=== PATIENT | female | born 1990 | race Caucasian/White ===

== ENCOUNTER → 2018-11-12 15:53 | Outpatient (CLI) | payer OTHER, SELFPAY ==
[2018-12-04 16:22] LABS: HPV Reflexed? NOT INDICATED
== END ==
PROVIDERS: Referring Provider Obstetrics & Gynecology; Visit Provider Obstetrics & Gynecology
DX: Z12.4 Encounter for screening for malignant neoplasm of cervix (principal)
CPT/HCPCS: 88175; G0145

== ENCOUNTER → 2019-10-21 13:56 | Outpatient (CLI) | payer OTHER, SELFPAY ==
[2019-10-21 16:52] LABS: Vitamin D,25 Hydroxy 24.4 ng/mL (29.95-100.01)
== END ==
PROVIDERS: Visit Provider Obstetrics & Gynecology
DX: E55.9 Vitamin D deficiency, unspecified (principal)
CPT/HCPCS: 82306

== ENCOUNTER → 2020-07-27 14:54 | Outpatient (CLI) | payer OTHER, SELFPAY ==
[2020-07-27 17:47] LABS: Progesterone Level 23.18 ng/mL (See Comment)
[2020-07-27 17:49] LABS: hCG Titer Quant., Serum 874 mIU/mL (1-3)
[2020-07-31 03:06] LABS: Chlamydia By Nucleic Acid AMP Negative (Negative)
[2020-07-31 05:39] LABS: Gonococcus By Nucleic Acid AMP Negative (Negative)
== END ==
PROVIDERS: Visit Provider Obstetrics & Gynecology
DX: Z11.3 Encounter for screening for infections with a predominantly sexual mode of transmission (principal); Z34.81 Encounter for supervision of other normal pregnancy, first trimester
CPT/HCPCS: 36415; 84144; 84702; 87491; 87591

== ENCOUNTER → 2020-07-29 14:28 | Outpatient (CLI) | payer OTHER, SELFPAY ==
[2020-07-29 16:00] LABS: hCG Titer Quant., Serum 2095 mIU/mL (1-3)
== END ==
PROVIDERS: Visit Provider Obstetrics & Gynecology
DX: Z34.81 Encounter for supervision of other normal pregnancy, first trimester (principal)
CPT/HCPCS: 36415; 84702

== ENCOUNTER → 2020-08-16 10:41 | Outpatient (CLI) | payer OTHER, SELFPAY ==
[2020-08-16 12:18] LABS: Absolute Lymphocyte Count 2.09 X10^3/uL (0.83-4.51); Basophil# 0.04 X10^3/uL; Basophil% 0.5 % (0-1); Eosinophil# 0.05 X10^3/uL; Eosinophils% 0.6 % (0-5); Hematocrit 38.1 % (37-47); Hemoglobin 12.6 g/dL (12.0-15.0); Lymphocyte # 2.09 X10^3/ul (4.0); Lymphocyte % 26.9 % (19-41); Mean Corp Hgb Conc 33.1 g/dL (32-36); Mean Corpuscular Hgb 29.1 pg (27.0-32.0); Mean Platelet Vol. 10.3 fl (6.2-12.0); Monocyte# 0.58 X10^3/uL; Monocyte% 7.5 % (0-10); NRBC Flagged by Analyzer 0 % (0-5); Neutrophil # 4.98 X10^3/uL (2.7-7.7); Neutrophil % 64.1 % (47-70); Platelet Count 272 K/mm3 (150-450); RBC Distribution Width CV 11.6 % (11.6-14.6); RBC Distribution Width SD 37.6 fl (35.1-43.9); Red Blood Count 4.33 M/mm3 (4.2-5.4); White Blood Count 7.8 K/mm3 (4.4-11.0)
[2020-08-16 13:08] LABS: HIV - WCH Non-Reactive (Nonreactive); Hepatitis B Surface Antigen Non-Reactive (Nonreactive); Hepatitis C Antibody Non-Reactive (Nonreactive); Rubella IgG 23.1 IU/mL
[2020-08-17 10:40] LABS: Vitamin D,25 Hydroxy 30.2 ng/mL
[2020-08-17 20:44] LABS: V-Zoster IgG (Immunity) 3711 index (Immune >165)
[2020-08-18 05:23] LABS: Prenatal RPR NONREACTIVE (NONREACTIVE)
== END ==
PROVIDERS: Visit Provider Student in an Organized Health Care Education/Training Program
DX: Z34.81 Encounter for supervision of other normal pregnancy, first trimester (principal)
CPT/HCPCS: 36415; 82306; 85025; 86703; 86762; 86787; 86803; 87340

== ENCOUNTER → 2020-12-23 14:47 | Outpatient (CLI) | payer OTHER, SELFPAY | PROVIDERS: Visit Provider Student in an Organized Health Care Education/Training Program | DX: R30.0 Dysuria (principal) | CPT/HCPCS: 87086 ==

== ENCOUNTER → 2021-01-04 09:49 | Outpatient (CLI) | payer OTHER, SELFPAY ==
[2021-01-04 10:17] LABS: Glucose Challenge Gest 1H 50g 153 mg/dL (70-140); Hematocrit 35.5 % (37-47); Hemoglobin 11.7 g/dL (12.0-15.0); Mean Corpuscular Hgb 29.5 pg (27.0-32.0); Mean Corpuscular Volume 89.4 fL (81-99); Mean Platelet Vol. 10.2 fl (6.2-12.0); Platelet Count 249 K/mm3 (150-450); RBC Distribution Width CV 12.9 % (11.6-14.6); RBC Distribution Width SD 42.3 fl (35.1-43.9); Red Blood Count 3.97 M/mm3 (4.2-5.4); White Blood Count 12.7 K/mm3 (4.4-11.0)
== END ==
PROVIDERS: Visit Provider Obstetrics & Gynecology
DX: Z34.83 Encounter for supervision of other normal pregnancy, third trimester (principal)
CPT/HCPCS: 36415; 82950; 85027

== ENCOUNTER → 2021-01-05 08:13 | Outpatient (CLI) | payer OTHER, SELFPAY ==
[2021-01-05 14:46] LABS: Glucose GTT-Gestation. Fasting 78 mg/dL (<105)
[2021-01-05 14:47] LABS: Glucose GTT-Gestational 1 Hr 138 mg/dL (<190)
[2021-01-05 14:48] LABS: Glucose GTT-Gestational 2 Hr 128 mg/dL (<165)
[2021-01-05 14:50] LABS: Glucose GTT-Gestational 3 Hr 97 L (<145)
== END ==
PROVIDERS: Visit Provider Obstetrics & Gynecology
DX: O99.810 Abnormal glucose complicating pregnancy (principal); Z3A.00 Weeks of gestation of pregnancy not specified
CPT/HCPCS: 36415; 82951; 82952

== ENCOUNTER 2021-01-25 08:27 | Observation (INO) | payer OTHER, SELFPAY ==
[2021-01-25] VITALS (8 sets, daily range): BP systolic 115–149; BP diastolic 65–95; PULSE 77–95; RESP 16; TEMP 36.6–36.8; O2SAT 97–100; BMI 29.0; BMI 29.9
--- NOTE | 2021-01-25 08:31 | ED.RN ---
consulted Dr Woo on patients complaints and vitals. He recommends patient be seen in ED before going to OB.
--- NOTE | 2021-01-25 08:47 | EKG12_ITS ---
Test Reason : Blood Pressure : / mmHG Vent. Rate : 082 BPM Atrial Rate : 082 BPM P-R Int : 156 ms QRS Dur : 094 ms QT Int : 382 ms P-R-T Axes : 039 072 022 degrees QTc Int : 446 ms Normal sinus rhythm Normal ECG Confirmed by ALBER MANTILLA, NATANAEL ([id number]), purchasing expeditor MARKUS PATTEN ([id number]) on 01/30/2021 2:16:48 PM Referred By: AIDA Confirmed By:NATANAEL CAMPO MD
--- NOTE | 2021-01-25 08:47 | CT_ITS ---
STUDY: CT HEAD STROKE PROTOCOL W/O CONTRAST INJECTION REASON FOR EXAM: Female, 30 years old. Right sided numbness RADIATION DOSAGE (If Supplied By Facility): CTDIvol = ( 44.99 ) mGy, DLP = ( 762.36 ) mGycm TECHNIQUE: Transaxial CT imaging of the brain was performed without administration of intravenous contrast material. Individualized dose optimization techniques were used for this CT. COMPARISON: No relevant priors. FINDINGS: Normal soft tissue structures. Normal calvarium. Normal size ventricles and extra-axial spaces for the patient''s age. Normal white matter tracts of the cerebral hemispheres. Normal basal ganglia and thalami. Normal brainstem. Normal cerebellum. There is no intracranial hemorrhage. There are no findings of an acute ischemic infarction. Normal visualized paranasal sinuses. ASPECT score: CT/STROKE Brain/Head without Cont IMPRESSION: Normal unenhanced CT scan of the brain. N.B. : The above information has been verbally conveyed by Pranav Cooper MD to Justin Haro on 01/25/2021 09:27:08 (ET). Electronically Signed: Pranav Cooper MD at 9:28 EST , Service support ,
[2021-01-25 09:06] LABS: Bedside Glucose 97 mg/dL (70-110)
[2021-01-25 09:15] LABS: Absolute Lymphocyte Count 2.27 X10^3/uL (0.83-4.51); Absolute Neutrophil Count 10.1 X10^3/uL (2.0-7.7); Basophil# 0.11 X10^3/uL; Basophil% 0.8 % (0-1); Eosinophil# 0.34 X10^3/uL; Eosinophils% 2.4 % (0-5); Hematocrit 37.9 % (37-47); Hemoglobin 12.5 g/dL (12.0-15.0); Lymphocyte # 2.27 X10^3/ul (4.0); Lymphocyte % 16.3 % (19-41); Mean Corpuscular Hgb 29.1 pg (27.0-32.0); Mean Corpuscular Volume 88.1 fL (81-99); Mean Platelet Vol. 10.2 fl (6.2-12.0); Monocyte# 0.69 X10^3/uL; Monocyte% 4.9 % (0-10); NRBC Flagged by Analyzer 0 % (0-5); Neutrophil # 10.12 X10^3/uL (2.7-7.7); Neutrophil % 72.6 % (47-70); Platelet Count 252 K/mm3 (150-450); RBC Distribution Width CV 13.1 % (11.6-14.6); RBC Distribution Width SD 42.1 fl (35.1-43.9)
[2021-01-25 09:28] LABS: Anion Gap 6 (5-15); BUN 5 mg/dL (7-18); BUN/Creat Ratio 10.4 RATIO (10-20); Calcium,Total 8.8 mg/dL (8.5-10.1); Chloride 105 mmol/L (98-107); Creatinine, Serum 0.48 mg/dL (0.55-1.02); EST Glomerular Filtration Rate 162 mL/min (>60); Est Glom Filt Rate - Afr Amer 196 mL/min (>60); Estimated Creatinine Clearance 163.35 ml/min; Glucose 90 mg/dL (74-106); Potassium 3.5 mmol/L (3.5-5.1); Sodium Level 138 mmol/L (136-145)
[2021-01-25 09:51] LABS: Prothrombin Time (Protime)PT. 12.2 SECONDS (11.7-14.9)
[2021-01-25 09:52] LABS: Partial Thromboplast Time 25.1 Seconds (24.1-36.2)
--- NOTE | 2021-01-25 10:01 | ED.VIS.GEN ---
History of Present Illness Chief Complaint: General Illness Narrative: Patient presenting for a presentation of numbness. Patient is currently 31 weeks . She states that this morning she was getting ready for the day and had a sudden onset where she felt numbness in her right face and in her right arm and a fogginess in her brain. Patient denies that there was any sort of speech difficulty. She denies any weakness associated with this. Patient did state that she had some flashes in her vision but denied that there was any sort of visual field cuts associated with this. No involvement of her leg. She is never had any prior similar episodes in the past. She denies any underlying history of migraine headaches and there was no pain associated with this. Patient does have a history of placenta previa she denies any vaginal bleeding or loss of fluid. She still has good movement. Patient only has an underlying history of ulcerative colitis, she takes mesalamine for this. No history of hypercoagulability or blood clots. No history of hypertension. Past Medical History - Allergies and Home Meds Allergies/Adverse Reactions: Allergies No Known Allergies Allergy (Verified 01/25/21 08:32) Primary Care Physician: Care Physician,No Primary [Primary Care Provider] - Prior records reviewed: Yes Past Medical History: - - Ulcerative colitis Lives: With Family Smoking Status: Never smoker Alcohol: None Drugs: None Review of Systems All systems negative except as indicated General: Denies: Chills, Fever, Sweats Eyes: Reports: - - Flashes in vision ENT: Denies: Rhinorrhea, Sore throat Cardiovascular: Denies: Chest pain, Palpitations Respiratory: Denies: Dyspnea, Cough, Dyspnea on exertion Gastrointestinal: Denies: Abdominal pain, Nausea, Vomiting, Diarrhea, Melena, Hematochezia Genitourinary: Denies: Dysuria, Hematuria, Frequency Musculoskeletal: Denies: Back pain, Extremity Pain Skin: Denies: Rash, Wounds Neurological: Reports: Parasthesia Physical Exam Vital Signs/Narrative: Vital Signs Temp Pulse Resp BP Pulse Ox 01/25/21 08:28 98.2 F 95 16 149/95 H 98 Inital Vital Signs reviewed: Yes General: Well nourished, Well developed, No Acute Distress Head: Normocephalic, Atraumatic Eyes: Perrl, EOMI ENT: Moist mucous membranes, No rhinorrhea Neck: Supple, Nontender Cardiovascular: Regular rate, Regular rhythm, Murmur - 2 out of 6 systolic consistent with the patient's history Respiratory: No distress, CTA bilaterally, Chest nontender Abdomen: Soft, Nontender, Nondistended, Normal bowel sounds Back: Nontender, Normal Inspection Extremities: Nontender, No edema Skin: Normal color, No rash Neurological: Alert, Oriented x3, Cranial nerves II-XII grossly intact, Normal Strength, - - Patient describes paresthesias of the right face and right arm, NIH stroke scale is 1. Psychological: Normal affect, Normal Mood Diagnostic/Tx/Re-eval Clinical Impression(s) from Imaging Studies Brain CT 01/25/21 08:47 IMPRESSION: Normal unenhanced CT scan of the brain. N.B. : The above information has been verbally conveyed by Pranav Cooper MD to Justin Haro on 01/25/2021 09:27:08 (ET). Electronically Signed: Pranav Cooper MD at 9:28 EST , Service support , ADDENDUM: 01/25/2135 IMPRESSION: Normal unenhanced CT scan of the brain. N.B. : The above information has been verbally conveyed by Pranav Cooper MD to Justin Haro on 01/25/2021 09:27:08 (ET). Electronically Signed: Pranav Cooper MD at 9:28 EST , Service support , Laboratory Data 01/25/21 01/25/21 01/25/21 08:51 09:00 09:00 WBC 14.0 H RBC 4.30 Hgb 12.5 Hct 37.9 MCV 88.1 MCH 29.1 MCHC 33.0 RDW Std Deviation 42.1 RDW Coeff of Brownyn 13.1 Plt Count 252 MPV 10.2 Immature Gran % (Auto) 3.000 H Neut % (Auto) 72.6 H Lymph % (Auto) 16.3 L [place] % (Auto) 4.9 Eos % (Auto) 2.4 Baso % (Auto) 0.8 Absolute Neuts (auto) 10.1 H Absolute Lymphs (auto) 2.27 Nucleated RBC % 0 PT 12.2 INR 1.0 APTT 25.1 Sodium Potassium Chloride Carbon Dioxide Anion Gap BUN Creatinine Estim Creat Clear Calc Est GFR (MDRD) Af Amer Est GFR (MDRD) Non-Af BUN/Creatinine Ratio Glucose Calcium Troponin I POC Glucose 97 01/25/21 09:00 WBC RBC Hgb Hct MCV MCH MCHC RDW Std Deviation RDW Coeff of [place] Plt Count MPV Immature Gran % (Auto) Neut % (Auto) Lymph % (Auto) [place] % (Auto) Eos % (Auto) Baso % (Auto) Absolute Neuts (auto) Absolute Lymphs (auto) Nucleated RBC % PT INR APTT Sodium 138 Potassium 3.5 Chloride 105 Carbon Dioxide 27.0 Anion Gap 6 BUN 5 L Creatinine 0.48 L Estim Creat Clear Calc 163.35 Est GFR (MDRD) Af Amer 196 Est GFR (MDRD) Non-Af 162 BUN/Creatinine Ratio 10.4 Glucose 90 Calcium 8.8 Troponin I < 0.015 POC Glucose - EKG Initial EKG Interpretation: - - Normal sinus rhythm of [address] segments normal T waves normal AK and QTc intervals no evidence of acute ischemia or arrhythmia - Medical Decision Making Patient presented secondary to right sided facial numbness. I did perform a CT scan on the patient which was negative. Lab work was found to be unremarkable mild leukocytosis likely associated with . Patient's triage blood pressure was in the 140s and then without intervention it came down to the 120s over 70s at home feel that this is a presentation of preeclampsia. I am concerned for the possibility of TIA. Repeat evaluation of the patient at 10 AM shows her to have resolution of the numbness type feeling, but she states that she still feels foggy. I believe the patient requires admission for MRI imaging and further observation. I did discuss this with Dr. Amezquita [employer], and he also feels that the patient is safe for admission at this facility. ED Disposition - Plan for ED Patient: Disposition: [facility] Diagnosis: Right facial numbness, Right arm numbness Referrals: Care Physician,No Primary [Primary Care Provider] -
[2021-01-25 10:46] LABS: AST(SGOT) 19 U/L (15-37); Alanine Aminotransfer ALT/SGPT 18 U/L (13-56); Albumin, Serum 3.1 g/dL (3.2-5.0); Alkaline Phosphatase 120 U/L (45-117); Bilirubin, Direct 0.07 mg/dL (0.00-0.30); Globulin 3.8 g/dL (2.2-4.2); LDH 186 U/L (84-246); Protein, Total 6.9 g/dL (6.4-8.2)
--- NOTE | 2021-01-25 11:15 | MRI_ITS ---
STUDY: MRI BRAIN WITHOUT CONTRAST REASON FOR EXAM: Female, 30 years old. CVA -- 31 weeks TECHNIQUE: Standardized multiplanar fat and water weighted pulse sequences were obtained. COMPARISON: CT earlier today FINDINGS: Normal size of the ventricles and extra-axial spaces for the patient''s age. Normal white matter tracts of the supratentorial brain. There is no evidence for recent intracranial ischemia or other cause of cytotoxic edema on diffusion weighted imaging (DWI). Normal T2* images of the brain without demonstrated susceptibility artifact. There is no demonstrated hemosiderin stain. Normal bilateral basal ganglia. Normal thalami. There is no extra-axial fluid accumulation. Normal flow voids within the major intracranial circulation suggesting patency by spin echo criteria. Normal sella turcica, pituitary gland, infundibular stalk, optic chiasm and hypothalamus. Normal tectal plate and pineal gland. Normal midbrain, esme and medulla. Normal cerebellum. Normal basal cisterns. Normal bilateral temporal bones. Normal bilateral internal auditory canals. No demonstrated orbital abnormality, within the constraints of a routine brain study. Normal visualized paranasal sinuses. Normal calvarium and skull base. Normal visualized soft tissue structures. Normal visualized upper cervical spine. MRI/Brain without Contrast IMPRESSION: Normal unenhanced MRI of the brain. Electronically Signed: Malik Szymanski MD at 17:04 EST Tel , Service support ,
--- NOTE | 2021-01-25 14:21 | ECHOD_ITS ---
Reason For Study: TIA Procedure This was a 2D Doppler, Color Flow transthoracic echocardiogram. Exam performed portable in patient room. Left Ventricle Normal LV size. Left ventricular systolic function is normal. The estimated ejection fraction is 65 %. No regional wall motion abnormalities noted. Right Ventricle Normal RV size. Normal systolic function. Atria Normal left atrium. Normal right atrium. Mitral Valve Normal mitral valve. Tricuspid Valve Normal tricuspid valve. Mild (1+) tricuspid valve insufficiency. Pulmonary artery systolic pressure is 16 mmHg. Normal pulmonary artery pressure. Aortic Valve Normal aortic valve. Trisinus/trileaflet aortic valve. Pulmonic Valve Normal pulmonic valve. Great Vessels Normal aortic root. The pulmonary artery is normal size. Normal inferior vena cava. Pericardium/Pleural No pericardial effusion. MMode/2D Measurements & Calculations LVIDd: 4.7 cm IVSd: 0.88 cm Ao root diam: 2.3 cm LVIDs: 2.4 cm LVPWd: 0.88 cm RVDd: 3.1 cm FS: 48.3 % LAV(MOD-bp): 28.3 ml LA A4 area: 13.3 cm2 LA dimension(2D): 3.6 cm LAV(MOD-bp) Indexed: 14.9 ml/m2 LAV(MOD-sp2): 24.3 ml LAV(MOD-sp4): 27.8 ml RA A4 area: 11.2 cm2 Doppler Measurements & Calculations MV E max sreedhar: 107.6 cm/sec Lat Peak E' Sreedhar: 20.3 cm/sec Med Peak E' Sreedhar: 8.8 cm/sec MV A max sreedhar: 62.3 cm/sec E/E' lat: 5.3 E/E' med: 12.2 MV E/A: 1.7 Ao V2 max: 172.9 cm/sec LV V1 max: 156.7 cm/sec PA V2 max: 113.6 cm/sec Ao max P.0 mmHg LV V1 max P.8 mmHg Ao V2 mean: 114.3 cm/sec Ao mean P.0 mmHg Ao V2 VTI: 29.0 cm TR max sreedhar: 177.5 cm/sec TR max P.6 mmHg Interpretation Summary Normal LV size. Left ventricular systolic function is normal. The estimated ejection fraction is 65 %. Structurally normal valves. Ordering Physician: Barrington Pelayo Performed By: Roseanne Steen RDCS, RVT
--- NOTE | 2021-01-25 16:50 | HP.PCM_ITS ---
History of Present Illness Date of Admission: 01/25/21 Chief Complaint: Facial numbness and right arm numbness The patient is a 30 year old F with a PMH as below who presents to the hospital with onset of right facial numbness, right arm numbness, blurry vision, bright spots in her vision, and foggy brain. She states that this happened this morning while she was putting on make-up and initially she had the facial numbness and the blurry vision and then she got in her car and she developed right arm numbness while she was trying her mother and after that her facial numbness occurred again. She is 31 weeks with her first and she does have a history of ulcerative colitis. She also has placenta previa and will be induced at around 36 weeks. Her lab work was unremarkable she had a white count of 14 but has been afebrile for this consistent with . She also had initially of blood pressure into the 140s however this came down on its own. Renal function is normal platelets are normal LFTs are normal LDH is normal. The case was discussed with OB on-call who felt that she was safe to stay here and was can have an OB nurse come up and perform an NST. Past Medical History Allergies No Known Allergies Allergy (Verified 01/25/21 08:32) Home Medications: Ambulatory Orders Medication Instructions Recorded Docusate Sodium [Colace] 100 mg PO BID 01/25/21 Mesalamine [Lialda] 2.4 tab PO DAILY 01/25/21 Pnv No.95/Ferrous Fum/Folic AC 1 ea PO DAILY 01/25/21 [ Caplet] Surgical History: no surgical history Lives: With Family Smoking Status: Never smoker Alcohol: None Drugs: None - *Family History Maternal History Items: Diabetes Paternal History Items: No pertinent history Review of Systems Constitutional: Denies: Chills, Fever, Weight Change HEENT: Denies: Head Aches, Sinus Congestion, Sinus Drainage Cardiovascular: Denies: Chest Pain, Palpitations Respiratory: Denies: Cough, Shortness of breath at rest, Sputum production Gastrointestinal: Denies: Abdominal Pain, Nausea, Vomiting Genitourinary: Denies: Dysuria Musculoskeletal: Denies: Joint Pain, Joint Tenderness Skin: Denies: Rash, Wounds Neurological: Reports: Blurred vision, Numbness. Denies: Focal weakness, Tingling Psychiatric: Denies: Anxiety, Depression Hematologic/ Lymphatic: Denies: Easy Bruising, Easy Bleeding VTE Information - Inpt Only VTE Present on Admission: No Patient Problems: Active and Suspected Problems Right facial numbness (Acute) Right arm numbness (Acute) - Physical Exam Vitals/I&O's: Vital Signs Temp Pulse Resp BP Pulse Ox 98.3 F 87 16 126/81 H 98 01/25/21 15:00 01/25/21 15:00 01/25/21 15:00 01/25/21 15:00 01/25/21 15:00 Oxygen Delivery Method Room Air Weight: 185 lb 3.013 oz Body Mass Index (BMI) 29.9 Intake and Output for Last 24 Hours 01/23/21 01/24/21 01/25/21 23:59 23:59 23:59 Intake Total 400 / 400 Balance 400 / 400 General: Alert, Oriented x3, Cooperative, No apparent distress HEENT: Atraumatic, PERRLA, EOMI, Normocephalic Oral: Moist Mucosa Neck: Supple, No JVD Lungs: Clear to auscultation, Normal air movement, No rhonchi, No wheeze, No rales Cardiovascular: Regular rate, Regular Rhythm, Normal S1, Normal S2, Murmur - 2/6 flow murmur Abdomen: Soft, Non Tender, Non-Distended, No Hepato-splenomegaly Extremities: No edema, Capillary Refill Less than 3 Seconds Skin: No rashes, No breakdown Neurological: Cranial nerves II-XII grossly intact, Deep Tendon Reflexes 2+/4 and Symmetrical, Neuro grossly intact, Motor Exam 5/5 strength throughout, Sensory exam intact to light touch and pain, - - Tinel's test is positive on the right, no facial droop or slurred speech NIH of 0 Psych/Mental Status: Normal Affect, Appropriate Laboratory Results 01/25/21 08:51: POC Glucose 97 01/25/21 09:00: WBC 14.0 H, RBC 4.30, Hgb 12.5, Hct 37.9, MCV 88.1, MCH 29.1, MCHC 33.0, RDW Std Deviation 42.1, RDW Coeff of Bronwyn 13.1, Plt Count 252, MPV 10.2, Immature Gran % (Auto) 3.000 H, Neut % (Auto) 72.6 H, Lymph % (Auto) 16.3 L, [place] % (Auto) 4.9, Eos % (Auto) 2.4, Baso % (Auto) 0.8, Absolute Neuts (auto) 10.1 H, Absolute Lymphs (auto) 2.27, Nucleated RBC % 0 01/25/21 09:00: PT 12.2, INR 1.0, APTT 25.1 01/25/21 09:00: Sodium 138, Potassium 3.5, Chloride 105, Carbon Dioxide 27.0, Anion Gap 6, BUN 5 L, Creatinine 0.48 L, Estim Creat Clear Calc 163.35, Est GFR (MDRD) Af Amer 196, Est GFR (MDRD) Non-Af 162, BUN/Creatinine Ratio 10.4, Glucose 90, Calcium 8.8, Troponin I < 0.015 01/25/21 10:00: Total Bilirubin 0.30, Direct Bilirubin 0.07, AST 19, ALT 18, Alkaline Phosphatase 120 H, Total Protein 6.9, Albumin 3.1 L, Globulin 3.8 01/25/21 10:00: Lactate Dehydrogenase 186 Current Medications Hydralazine HCl (Hydralazine 20 Mg/Ml Vial) 5 mg IV Q30M PRN PRN Reason: to maintain BP goals Sodium Chloride () 250 mls @ 15 mls/hr IV .[id number] PRN PRN Reason: Saline Flush Sodium Chloride () 250 mls @ 15 mls/hr IV .[id number] PRN PRN Reason: Additional IVPB Infusion Labetalol HCl (Labetalol (Prefilled) 20 Mg/4 Ml) 10 - 20 mg IV Q10M PRN PRN PRN Reason: to Maintain BP Goals Sodium Chloride (0.9% Saline Lock 10 Ml Syringe) 10 - 40 ml IV UD PRN PRN Reason: SALINE FLUSH Assessment/Plan All Active Problems Right facial numbness (Acute) Right arm numbness (Acute) 1. TIA/CVA rule out -Based on symptomatology will rule out a TIA, echo was unremarkable and she does have a flow murmur likely secondary to . Echo did not demonstrate any valvular abnormality other than a mild tricuspid valve insufficiency -MRI is currently pending, she is unsure if she wants to wait for the result if she wants to go home since her symptoms have resolved -Possibilities include complex migraine as this can occur without a headache at times though it is rare -We will hold off on any aspirin or statin given her at this time -We will have her follow-up with an outpatient neurologist on discharge regardless of the results of the MRI -NIH of 0 2. #1 at 31 weeks with placenta previa -No vaginal bleeding or discomfort -We will be induced at 36 weeks -NST by the OB nurse was normal 3. Ulcerative colitis -Managed with mesalamine -We will continue DVT: Ambulation OBSV E&M: 62005 Initial observation care L2
--- NOTE | 2021-01-25 17:03 | DCINST_ITS ---
- Discharge Diagnoses Current Active Problems: Current Active and Chronic Problems Right facial numbness (Acute) Right arm numbness (Acute) You will use the following diet at home:: Regular Your food should be the consistency of: Regular Your liquids should be the consistency of: Regular/Thin Discharge Activity: Return to Normal Activity Call your doctor if you observe: Fever of 101 or Higher, Shortness of breath, D izziness, Fainting spells, Swelling in the ankles, Chest pain, Increased palpitations (irregular heartbeat) Allergies/Adverse Reactions: Allergies No Known Allergies Allergy (Verified 01/25/21 08:32) Medications to take at Discharge Docusate Sodium [Colace] 100 mg PO BID 01/25/21 Mesalamine [Lialda] 2.4 tab PO DAILY 01/25/21 Pnv No.95/Ferrous Fum/Folic AC [ Caplet] 1 ea PO DAILY 01/25/21 Primary Care Physician: Care Physician,No Primary [Primary Care Provider] - Please follow up with your Primary Care Physician in: 3-5 days Test Results: Test results from this visit will be discussed in further detail at your follow- up appointment, if applicable. Please Follow Up With: Anderson Donato MD When: 2-4 weeks
--- NOTE | 2021-01-25 17:08 | DS.PCM_ITS ---
Discharge Date and Diagnosis - Problem List Patient Problems: Active and Suspected Problems Right facial numbness (Acute) Right arm numbness (Acute) Date of Admission: 01/25/21 Date of Discharge: 01/25/21 - Primary Discharge Diagnosis Acute Problems: Active Problems Right facial numbness (Acute) Right arm numbness (Acute) Hospital Course and Treatment Imaging Results: Clinical Impression(s) from Imaging Studies Brain CT 01/25/21 08:47 IMPRESSION: Normal unenhanced CT scan of the brain. N.B. : The above information has been verbally conveyed by Pranav Cooper MD to Justin Haro on 01/25/2021 09:27:08 (ET). Electronically Signed: Pranav Cooper MD at 9:28 EST , Service support , ADDENDUM: 01/25/21 0935 IMPRESSION: Normal unenhanced CT scan of the brain. N.B. : The above information has been verbally conveyed by Pranav Cooper MD to Justin Haro on 01/25/2021 09:27:08 (ET). Electronically Signed: Pranav Cooper MD at 9:28 EST , Service support , Brain MRI 01/25/21 11:15 IMPRESSION: Normal unenhanced MRI of the brain. Electronically Signed: Malik Szymanski MD at 17:04 EST Tel , Service support , Echo: Interpretation Summary Normal LV size. Left ventricular systolic function is normal. The estimated ejection fraction is 65 %. Structurally normal valves. Operations: None Procedures: 2-D Echocardiogram Summary of Care Provided: Per HPI: The patient is a 30 year old F with a PMH as below who presents to the hospital with onset of right facial numbness, right arm numbness, blurry vision, bright spots in her vision, and foggy brain. She states that this happened this morning while she was putting on make-up and initially she had the facial numbness and the blurry vision and then she got in her car and she developed right arm numbness while she was trying her mother and after that her facial numbness occurred again. She is 31 weeks with her first and she does have a history of ulcerative colitis. She also has placenta previa and will be induced at around 36 weeks. Her lab work was unremarkable she had a white count of 14 but has been afebrile for this consistent with . She also had initially of blood pressure into the 140s however this came down on its own. Renal function is normal platelets are normal LFTs are normal LDH is normal. The case was discussed with OB on-call who felt that she was safe to stay here and was can have an OB nurse come up and perform an NST. Hospital Course: 1. TIA/CVA rule [id number]bden-old female with a history of ulcerative colitis presented to the hospital with now resolved right facial numbness, blurry vision and right arm numbness. She also had some flashes of light in her right eye as well as well as foggy brain. Echo was unremarkable and her MRI was normal. Given that she is 31 weeks I do recommend she follow-up with neurology as an outpatient at this could possibly be a complex migraine that presented with just the auras without the headache. I discussed this with her and her who both expressed understanding of the risks and benefits of discharge and would like to go home today. NIH is 0 she does have a positive Tinel's sign on the right so she could have a early carpal tunnel syndrome, we did talk about noninvasive strategies for medication. 2. Ulcerative colitis is a chronic medical problem which complicates her care. She is also 31 weeks with placenta previa she will be induced at 36 weeks so she will follow-up with OB as an outpatient as well. Patient Problems: Active and Suspected Problems Right facial numbness (Acute) Right arm numbness (Acute) - Physical Exam Vitals/I&O's: Vital Signs Temp Pulse Resp BP Pulse Ox 98.3 F 87 16 126/81 H 98 01/25/21 15:00 01/25/21 15:00 01/25/21 15:00 01/25/21 15:00 01/25/21 15:00 Oxygen Delivery Method Room Air Weight: 185 lb 3.013 oz Body Mass Index (BMI) 29.9 Intake and Output for Last 24 Hours 01/23/21 01/24/21 01/25/21 23:59 23:59 23:59 Intake Total 400 / 400 Balance 400 / 400 Laboratory Results 01/25/21 08:51: POC Glucose 97 01/25/21 09:00: WBC 14.0 H, RBC 4.30, Hgb 12.5, Hct 37.9, MCV 88.1, MCH 29.1, MCHC 33.0, RDW Std Deviation 42.1, RDW Coeff of Bronwyn 13.1, Plt Count 252, MPV 10.2, Immature Gran % (Auto) 3.000 H, Neut % (Auto) 72.6 H, Lymph % (Auto) 16.3 L, [place] % (Auto) 4.9, Eos % (Auto) 2.4, Baso % (Auto) 0.8, Absolute Neuts (auto) 10.1 H, Absolute Lymphs (auto) 2.27, Nucleated RBC % 0 01/25/21 09:00: PT 12.2, INR 1.0, APTT 25.1 01/25/21 09:00: Sodium 138, Potassium 3.5, Chloride 105, Carbon Dioxide 27.0, Anion Gap 6, BUN 5 L, Creatinine 0.48 L, Estim Creat Clear Calc 163.35, Est GFR (MDRD) Af Amer 196, Est GFR (MDRD) Non-Af 162, BUN/Creatinine Ratio 10.4, Glucose 90, Calcium 8.8, Troponin I < 0.015 01/25/21 10:00: Total Bilirubin 0.30, Direct Bilirubin 0.07, AST 19, ALT 18, Alkaline Phosphatase 120 H, Total Protein 6.9, Albumin 3.1 L, Globulin 3.8 01/25/21 10:00: Lactate Dehydrogenase 186 Current Medications Hydralazine HCl (Hydralazine 20 Mg/Ml Vial) 5 mg IV Q30M PRN PRN Reason: to maintain BP goals Sodium Chloride () 250 mls @ 15 mls/hr IV .[id number] PRN PRN Reason: Saline Flush Sodium Chloride () 250 mls @ 15 mls/hr IV .[id number] PRN PRN Reason: Additional IVPB Infusion Labetalol HCl (Labetalol (Prefilled) 20 Mg/4 Ml) 10 - 20 mg IV Q10M PRN PRN PRN Reason: to Maintain BP Goals Sodium Chloride (0.9% Saline Lock 10 Ml Syringe) 10 - 40 ml IV UD PRN PRN Reason: SALINE FLUSH Discharge Activity: Return to Normal Activity Call your doctor if you observe: Fever of 101 or Higher, Shortness of breath, Dizziness, Fainting spells, Swelling in the ankles, Chest pain, Increased palpitations (irregular heartbeat) Home Medications: Medications to take at Discharge Docusate Sodium [Colace] 100 mg PO BID 01/25/21 Mesalamine [Lialda] 2.4 tab PO DAILY 01/25/21 Pnv No.95/Ferrous Fum/Folic AC [ Caplet] 1 ea PO DAILY 01/25/21 Primary Care Physician: Care Physician,No Primary [Primary Care Provider] - Please follow up with your Primary Care Physician in: 3-5 days Please Follow Up With: Anderson Donato MD When: 2-4 weeks Disposition: Home Minutes spent on discharge:: 35 Patient Condition:: Stable Medical Necessity - Tobacco Use Smoking Status: Never smoker Meaningful Use Info Meaningful Use Diagnoses (Choose all that apply): None applicable OBSV E&M: 20925 Observ/hosp same date L2
--- NOTE | 2021-01-26 08:20 | OB.TRI.NOTE ---
History of Present Illness Date of Service: 01/25/21 Was patient seen by the physician?: No Reason For Visit: TIA Date of Service: 01/25/21 Final ROXANNE: 03/28/21 Final ROXANNE Source: US <20 weeks Gestational age: 31 Weeks and 1 Days History of Present Illness: 31+ week intrauterine presented to the emergency room with TIA symptoms. Good movement noted and no vaginal bleeding. Concerned about effect of TIA on baby. Given this, labor and delivery personnel did bedside nonstress test in the PCU. Allergies No Known Allergies Allergy (Verified 01/25/21 08:32) Laboratory Studies: Laboratory Tests 01/25/21 01/25/21 01/25/21 Range/Units 10:00 10:00 09:00 WBC (4.4-11.0) K/mm3 RBC (4.2-5.4) M/mm3 Hgb (12.0-15.0) g/dL Hct (37-47) % MCV (81-99) fL MCH (27.0-32.0) pg MCHC (32-36) g/dL RDW Std Deviation (35.1-43.9) fl RDW Coeff of Bronwyn (11.6-14.6) % Plt Count (150-450) K/mm3 MPV (6.2-12.0) fl Immature Gran % (Auto) (0.0-0.9) % Neut % (Auto) (47-70) % Lymph % (Auto) (19-41) % [place] % (Auto) (0-10) % Eos % (Auto) (0-5) % Baso % (Auto) (0-1) % Absolute Neuts (auto) (2.0-7.7) X10^3/uL Absolute Lymphs (auto) (0.83-4.51) X10^3/uL Nucleated RBC % (0-5) % PT (11.7-14.9) SECONDS INR APTT (24.1-36.2) Seconds Sodium 138 (136-145) mmol/L Potassium 3.5 (3.5-5.1) mmol/L Chloride 105 (98-107) mmol/L Carbon Dioxide 27.0 (21.0-32.0) mmol/L Anion Gap 6 (5-15) BUN 5 L (7-18) mg/dL Creatinine 0.48 L (0.55-1.02) mg/dL Estim Creat Clear Calc 163.35 ml/min Est GFR (MDRD) Af Amer 196 (>60) mL/min Est GFR (MDRD) Non-Af 162 (>60) mL/min BUN/Creatinine Ratio 10.4 (10-20) RATIO Glucose 90 (74-106) mg/dL Calcium 8.8 (8.5-10.1) mg/dL Total Bilirubin 0.30 (0.20-1.00) mg/dL Direct Bilirubin 0.07 (0.00-0.30) mg/dL AST 19 (15-37) U/L ALT 18 (13-56) U/L Alkaline Phosphatase 120 H (45-117) U/L Lactate Dehydrogenase 186 (84-246) U/L Troponin I < 0.015 (<0.045) ng/mL Total Protein 6.9 (6.4-8.2) g/dL Albumin 3.1 L (3.2-5.0) g/dL Globulin 3.8 (2.2-4.2) g/dL POC Glucose (70-110) mg/dL 01/25/21 01/25/21 01/25/21 Range/Units 09:00 09:00 08:51 WBC 14.0 H (4.4-11.0) K/mm3 RBC 4.30 (4.2-5.4) M/mm3 Hgb 12.5 (12.0-15.0) g/dL Hct 37.9 (37-47) % MCV 88.1 (81-99) fL MCH 29.1 (27.0-32.0) pg MCHC 33.0 (32-36) g/dL RDW Std Deviation 42.1 (35.1-43.9) fl RDW Coeff of Bronwyn 13.1 (11.6-14.6) % Plt Count 252 (150-450) K/mm3 MPV 10.2 (6.2-12.0) fl Immature Gran % (Auto) 3.000 H (0.0-0.9) % Neut % (Auto) 72.6 H (47-70) % Lymph % (Auto) 16.3 L (19-41) % [place] % (Auto) 4.9 (0-10) % Eos % (Auto) 2.4 (0-5) % Baso % (Auto) 0.8 (0-1) % Absolute Neuts (auto) 10.1 H (2.0-7.7) X10^3/uL Absolute Lymphs (auto) 2.27 (0.83-4.51) X10^3/uL Nucleated RBC % 0 (0-5) % PT 12.2 (11.7-14.9) SECONDS INR 1.0 APTT 25.1 (24.1-36.2) Seconds Sodium (136-145) mmol/L Potassium (3.5-5.1) mmol/L Chloride (98-107) mmol/L Carbon Dioxide (21.0-32.0) mmol/L Anion Gap (5-15) BUN (7-18) mg/dL Creatinine (0.55-1.02) mg/dL Estim Creat Clear Calc ml/min Est GFR (MDRD) Af Amer (>60) mL/min Est GFR (MDRD) Non-Af (>60) mL/min BUN/Creatinine Ratio (10-20) RATIO Glucose (74-106) mg/dL Calcium (8.5-10.1) mg/dL Total Bilirubin (0.20-1.00) mg/dL Direct Bilirubin (0.00-0.30) mg/dL AST (15-37) U/L ALT (13-56) U/L Alkaline Phosphatase (45-117) U/L Lactate Dehydrogenase (84-246) U/L Troponin I (<0.045) ng/mL Total Protein (6.4-8.2) g/dL Albumin (3.2-5.0) g/dL Globulin (2.2-4.2) g/dL POC Glucose 97 (70-110) mg/dL Physical Exam Vitals: Vital Signs Temp Pulse Resp BP Pulse Ox 97.9 F 91 16 117/65 97 01/25/21 16:30 01/25/21 16:30 01/25/21 16:30 01/25/21 16:30 01/25/21 16:30 NST - FHR Rate Baby A NST Reactive:: Yes FHR Category:: Category I Impression/Plan 31+ week intrauterine with TIA. heart tones were reactive and patient was reassured. No evidence of -induced hypertension after discussion regarding patient with the emergency room physician. Continue present routine obstetrical care in the office after present treatment of TIA per hospitalist in the PCU.
== END 2021-01-25 17:03 | disposition home or self-care (01) ==
LOC: ED 10:05 → PCU 11:08
PROVIDERS: Admitting Provider Family Medicine; Emergency Provider Emergency Medicine; Visit Provider Family Medicine
DX: O99.613 Diseases of the digestive system complicating pregnancy, third trimester (principal); R20.0 Anesthesia of skin; H53.8 Other visual disturbances; Z3A.31 31 weeks gestation of pregnancy; K51.90 Ulcerative colitis, unspecified, without complications; Z79.899 Other long term (current) drug therapy
CPT/HCPCS: 59025; 59050; 70450; 70551; 80048; 80076; 82962; 83615; 84484; 85025; 85610; 85730; 93005; 93306; 97166; 99218; 99285; G0378

== ENCOUNTER → 2021-02-27 15:18 | Outpatient (CLI) | payer OTHER, SELFPAY ==
[2021-01-25 17:16] VITALS: BMI 29.9
== END ==
PROVIDERS: Visit Provider Student in an Organized Health Care Education/Training Program
DX: Z36.85 Encounter for antenatal screening for Streptococcus B (principal)
CPT/HCPCS: 87081

== ENCOUNTER → 2021-03-01 14:05 | Outpatient (CLI) | payer OTHER, SELFPAY ==
[2021-01-25 17:16] VITALS: BMI 29.9
== END ==
PROVIDERS: PCP Nurse Practitioner Family; Referring Provider Student in an Organized Health Care Education/Training Program; Visit Provider Student in an Organized Health Care Education/Training Program
DX: Z03.818 Encounter for observation for suspected exposure to other biological agents ruled out (principal)
CPT/HCPCS: 87635; C9803; U0002

== ENCOUNTER 2021-03-06 05:10 | Inpatient (IN) | payer OTHER, SELFPAY ==
[2021-01-25 17:16] VITALS: BMI 29.9
[2021-03-06] VITALS (21 sets, daily range): BP systolic 83–122; BP diastolic 33–72; PULSE 75–96; RESP 14–18; TEMP 35.7–37; O2SAT 94–100; BMI 31.1
[2021-03-06] MEDS: Lactated Ringers 1,000 ML 999 ML IV (05:25)
[2021-03-06] MEDS: Acetaminophen 500 MG Tablet 1000 MG PO ×3 (05:38→18:19)
[2021-03-06 05:39] LABS: Absolute Neutrophil Count 10.9 X10^3/uL (2.0-7.7); Basophil# 0.09 X10^3/uL; Basophil% 0.6 % (0-1); Eosinophil# 0.27 X10^3/uL; Eosinophils% 1.7 % (0-5); Hematocrit 34.9 % (37-47); Hemoglobin 11.5 g/dL (12.0-15.0); Lymphocyte % 22.4 % (19-41); Mean Corpuscular Hgb 28.5 pg (27.0-32.0); Mean Corpuscular Volume 86.6 fL (81-99); Mean Platelet Vol. 10.4 fl (6.2-12.0); Monocyte# 0.69 X10^3/uL; Monocyte% 4.3 % (0-10); NRBC Flagged by Analyzer 0 % (0-5); Neutrophil # 10.88 X10^3/uL (2.7-7.7); Neutrophil % 67.6 % (47-70); Platelet Count 240 K/mm3 (150-450); RBC Distribution Width CV 13.2 % (11.6-14.6); RBC Distribution Width SD 41.3 fl (35.1-43.9); Red Blood Count 4.03 M/mm3 (4.2-5.4); White Blood Count 16.1 K/mm3 (4.4-11.0)
[2021-03-06] MEDS: Lactated Ringers 1,000 ML 150 ML IV (06:19)
[2021-03-06] MEDS: Sodium Citrate/Citric Acid 30 ML UDC PO (07:12)
--- NOTE | 2021-03-06 07:13 | PCM.HPOB.BLA ---
History and Physical Date of Admission: 03/06/21 HPI: 30-year-old G1, P0 at 36/6 weeks, ROXANNE 03/28/2021 by LMP, admitted for primary section for placenta previa. Denies leaking of fluid, vaginal bleeding, contractions. Reports movement. This is complicated by: Placenta previa and ulcerative colitis Obstetrical History G 1: Current Past Medical History Ulcerative colitis Medications PNV, mesalamine Past Surgical History Colonoscopy, LASEK eye surgery, wisdom tooth extraction, hemorrhoid surgery Social History Tobacco use: Denies Alcohol use: Denies Illicit drug use: Denies Labs Blood type: O pos Rubella: Immune Varicella: Immune Hep B/C: Negative/negative HIV: Negative RPR: Nonreactive 1 hour GTT: Failed 1 hour, 3-hour within normal limits GBS: neg 4/5 Allergies No known drug allergies Review of Systems General: alert and oriented HEENT: _denies change of vision Heart/lungs: _denies CP, SOB GI: _denies nausea, vomiting, dysuria, diarrhea MSK: _denies calf pain, tenderness Physical Exam Vital Signs Temp Pulse Resp BP Pulse Ox 03/06/21 06:14 98.5 F 90 18 122/72 H 98 General: a&o x3, NAD HEENT: normocephalic, atraumatic Cardio: no JVD Resp: no increased work in breathing Abdomen: soft, gravid, nontender Extremities: _minimal-moderate edema FHT: pending in OR Labs Laboratory Results - last 24 hr 03/06/21 03/06/21 05:25 05:25 WBC 16.1 H RBC 4.03 L Hgb 11.5 L Hct 34.9 L MCV 86.6 MCH 28.5 MCHC 33.0 RDW Std Deviation 41.3 RDW Coeff of Bronwyn 13.2 Plt Count 240 MPV 10.4 Immature Gran % (Auto) 3.400 H Neut % (Auto) 67.6 Lymph % (Auto) 22.4 [place] % (Auto) 4.3 Eos % (Auto) 1.7 Baso % (Auto) 0.6 Absolute Neuts (auto) 10.9 H Absolute Lymphs (auto) 3.60 Nucleated RBC % 0 Blood Type O POSITIVE Antibody Screen NEGATIVE Assessment & Plan 30-year-old G1, P0 at 36/6 weeks, ROXANNE 03/28/2021 by LMP, admitted for primary section and possible skin tag removal for placenta previa and perineal skin tag. This is complicated by: Placenta previa and ulcerative colitis Admit to L&D - Routine labor orders. 2 g Ancef preop -Tylenol and oxycodone postop - GBS negative - Anesthesia to see
[2021-03-06] MEDS: Cefazolin 2 GM in 0.9% Normal Saline 100 ML IV (07:20)
--- NOTE | 2021-03-06 08:22 | OP.PCM_ITS ---
Delivery Classification: Scheduled Final ROXANNE: 03/28/21 Final ROXANNE Source: LMP Gestational age: 36 Weeks and 6 Days Type of Anesthesia:: Spinal Date of Procedure: 03/06/21 Pre-Operative Diagnosis: Placenta previa. Martinez intrauterine . . Post-Operative Diagnosis: Placenta previa. Martinez intrauterine . . Uterine inversion. Indications: 30-year-old G1 at 36/6 weeks presenting for primary section and possible skin tag removal for placenta previa and perineal skin tag. All risk benefits alternatives were discussed with patient. Risks include but are not limited to: Risk of bleeding to the point of transfusion, infection, injury to surrounding tissue including bowel or bladder, VTE, ICU admission. Patient aware and consented. Upon examination in OR skin tag appeared to be at anus questionable hemorrhoid. Decision to leave this for her GI inspection was made. Description of Procedure: Patient taken to the operating room spinal anesthesia placed. Patient placed in the supine position with left lateral tilt and prepped and draped in the usual sterile fashion. Pfannenstiel skin incision made with scalpel carried down through subcutaneous tissue. Fascia nicked on either side of the midline and extended bilaterally. Gwendolyn clamps placed on the superior fascial edge which was tented up and underlying rectus muscles were dissected off bluntly and sharply at midline using Gonzales scissors. Gwendolyn clamps moved to inferior fascial edge which was tented up and underlying rectus muscles were dissected off in a similar fashion. Hemostats utilized to separate rectus muscle superiorly. Peritoneum grasped with hemostats and incised with Metzenbaum scissors. Extended bluntly. Bladder blade placed. Vesicouterine peritoneum identified and bladder flap created using Metzenbaum scissors. Low transverse uterine incision made with scalpel and extended bluntly. Amniotomy with Allis clamp, clear fluid. Hand placed into the uterus and assistance of gentle fundal pressure head delivered followed by body. No nuchal cord. Cord clamped and cut, baby handed to nursing. Placenta began to release with uterine massage. Uterine version noted with complete uterine inversion. Pitocin stopped. Uterus placed back into normal position with manual pressure. Placenta removed manually. Appeared slightly adherent. Banjo curettage of the uterus completed clearing all clots and membranes. Placenta inspected, no missing portions or c otyledons were noted. Uterus inspected once more, noting no placental tissue. Hysterotomy then closed with a running locking stitch followed by a second vertical imbricating stitch. 1 [id number] placed at the right side of the hysterotomy for hemostasis. Uterus replaced into the abdomen, hysterotomy continued to be hemostatic. Peritoneum closed with a running stitch. Fascia closed with a running stitch. Subcutaneous tissue closed with a running stitch. Skin closed with a running subcuticular stitch. At the end of the procedure all needle, lap, sponge counts were correct x3. Urine output: 300 cc. Amniotic Membrane Rupture Type: Artificial Amniotic Fluid Description: Clear Gender: Female (1 minute): 8 (5 minute): 9 Antibiotic Given: Ancef 2 grams IV x1 - Admit VTE Documentation VTE Mechan Device Prophylaxis: SCD's
--- NOTE | 2021-03-06 08:30 | DCINST_ITS ---
Discharge Diet: No Restrictions Discharge Activity: Return to Normal Activity, May not drive while taking narcotic pain medications., May Shower May resume sexual activity in: 6-8 weeks Weight Bearing Status: Weight bearing as tolerated Call your doctor if your incision/area has: Continuous Slow Oozing, Sudden Increased Bleeding, Increased Pain/ Swelling, Increased Redness Call your doctor if you observe: Fever of 101 or Higher, Inability to urinate, Inability to have a bowel movement, Using more than one pad per hour, Shortness of breath, Calf discomfort, Uncontrolled pain Cleanse incision/area with: Soap & Water Additional Instructions: If you experience any of the following, contact your healthcare provider. * Bleeding that soaks a pad every hour for 2 hours * Fever 100.4 or higher * Unrelieved incision or abdominal pain * Swelling, redness, discharge or bleeding from your incision or episiotomy site * Your incision begins to separate * Problems urinating (including inability to urinate or burning while urinating). * Visual changes * Severe headache * Flu-like symptoms * Pain or redness in one of both of your breasts * Pain, warmth, tenderness or swelling in your legs, especially the calf area * Frequent nausea and vomiting * Symptoms of depression or anxiety If you experience any of the following, call 911 or go to the nearest Emergency Room. * Chest pain * Problems breathing * Seizure activity * Partial or complete paralysis of a body part, slurred speech, weakness or drooping of the face, or a sudden inability to walk or hold your balance Allergies/Adverse Reactions: Allergies No Known Allergies Allergy (Verified 01/25/21 08:32) Medications to take at Discharge Docusate Sodium [Colace] 100 mg PO BID 01/25/21 Mesalamine [Lialda] 2.4 tab PO DAILY 01/25/21 Pnv No.95/Ferrous Fum/Folic AC [ Caplet] 1 ea PO DAILY 01/25/21 Follow-Up: Call to make an appointment with your doctor for an incision check in 1-2 weeks. You will also need a 6 week post- follow up appointment. Test results from this visit will be discussed in further detail at your follow- up appointment, if applicable. Please Follow Up With: Mirta Campbell DO When: 2 week post op, 6 week Primary Care Physician: Care Physician,No Primary [Primary Care Provider] -
[2021-03-06] MEDS: Oxytocin 30 units/NS 500 ml 30 UNITS/500 ML IV.SOLN 167 UNITS IV (08:41)
[2021-03-06] MEDS: Ketorolac 30 MG/ML Syringe IV ×3 (09:19→20:32)
[2021-03-06] MEDS: Senna/Docusate Sodium 1 Tablet PO (10:07)
[2021-03-06] MEDS: Lactated Ringers 1,000 ML 100 ML IV (12:17)
[2021-03-06] MEDS: 0.9% Saline Lock 10 ML Syringe IV ×2 (15:18→20:33)
[2021-03-06] MEDS: Enoxaparin 40 MG/0.4 ML Syringe SC (20:32)
[2021-03-07] MEDS: Acetaminophen 500 MG Tablet 1000 MG PO ×4 (00:01→18:24)
[2021-03-07] MEDS: Ketorolac 30 MG/ML Syringe IV (03:41)
[2021-03-07] MEDS: 0.9% Saline Lock 10 ML Syringe IV (03:41)
[2021-03-07 03:47] VITALS: BP 108/68; PULSE 76; RESP 16; TEMP 36.9
[2021-03-07 05:54] LABS: Hemoglobin 9.6 g/dL (12.0-15.0); Mean Corpuscular Hgb 28.2 pg (27.0-32.0); Mean Corpuscular Volume 88.2 fL (81-99); Mean Platelet Vol. 10.3 fl (6.2-12.0); Platelet Count 210 K/mm3 (150-450); RBC Distribution Width CV 13.2 % (11.6-14.6); RBC Distribution Width SD 42.8 fl (35.1-43.9); White Blood Count 18.2 K/mm3 (4.4-11.0)
[2021-03-07 07:51] VITALS: BP 103/65; PULSE 85; RESP 16; TEMP 36.9; O2SAT 98
[2021-03-07] MEDS: Senna/Docusate Sodium 1 Tablet PO (08:00)
--- NOTE | 2021-03-07 08:19 | PN.OBGYN_ITS ---
Subjective: POD#1 Feeling well, pain controlled. Stopped toradol. - Physical Exam Vitals/I&O's: Vital Signs Temp Pulse Resp BP Pulse Ox 98.5 F 85 16 103/65 98 03/07/21 07:51 03/07/21 07:51 03/07/21 07:51 03/07/21 07:51 03/07/21 07:51 Oxygen Delivery Method Room Air Weight: 87.4 kg Body Mass Index (BMI) 31.1 Intake and Output for Last 24 Hours 03/05/21 03/06/21 03/07/21 23:59 23:59 23:59 Intake Total 4054.08 / 4054.08 Output Total 3350 / 3350 Balance 704.08 / 704.08 General: Alert, Oriented x3, No apparent distress HEENT: Atraumatic, Normocephalic Neck: Supple Lungs: Normal air movement Cardiovascular: Regular Rhythm Abdomen: Soft - dressing c/d, uterus 2 cm below umbilicus Extremities: No edema Neurological: Cranial nerves II-XII grossly intact Psych/Mental Status: Normal Affect, Appropriate Laboratory Results 03/07/21 05:45: WBC 18.2 H, RBC 3.40 L, Hgb 9.6 L, Hct 30.0 L, MCV 88.2, MCH 28.2, MCHC 32.0, RDW Std Deviation 42.8, RDW Coeff of [place]wyn 13.2, Plt Count 210, MPV 10.3 Current Medications Acetaminophen (Acetaminophen 500 Mg Tablet) 1,000 mg PO Q6 [facility] Last Admin: 03/07/21 05:40 Dose: 1,000 mg Documented by: Bisacodyl (Bisacodyl 10 Mg Suppository) 10 mg RC UD PRN PRN Reason: If no BM Diphenhydramine HCl (Diphenhydramine 25 Mg Capsule) 25 mg PO Q6H PRN PRN PRN Reason: ITCHING Stop: 03/07/21 11:58 Enoxaparin Sodium (Enoxaparin 40 Mg/0.4 Ml Syringe) 40 mg SC DAILY@2200 [facility] Last Admin: 03/06/21 20:32 Dose: 40 mg Documented by: Hydrocortisone (Hydrocortisone 2.5% Crm) 1 applic TOPICAL TID PRN PRN; Protocol PRN Reason: Discomfort Lactated Ringer's () 1,000 mls @ 100 mls/hr IV .Q10H [facility] Last Admin: 03/07/21 02:43 Dose: Not Given Documented by: Ketorolac Tromethamine (Ketorolac 30 Mg/Ml Syringe) 30 mg IV Q6H [facility] Stop: 03/11/21 09:01 Last Admin: 03/07/21 03:41 Dose: 30 mg Documented by: Nalbuphine HCl (Nalbuphine 10 Mg/Ml Ampul) 5 mg IV Q3H PRN PRN PRN Reason: ITCHING Stop: 03/07/21 11:58 Naloxone HCl (Naloxone 0.4 Mg/Ml Syringe) 0.02 mg IV Q1M PRN PRN Reason: RR <10 and pt unresponsive Ondansetron HCl (Ondansetron 4 Mg/2 Ml Vial) 4 mg IV Q4H PRN PRN PRN Reason: Nausea Oxycodone HCl (Oxycodone 5 Mg Tablet) 5 - 10 mg PO Q4H PRN PRN PRN Reason: Pain Score 4-10 Prochlorperazine Edisylate (Prochlorperazine 10 Mg/2 Ml Vial) 10 mg IV Q6H PRN PRN PRN Reason: NAUSEA Senna/Docusate Sodium (Senna/Docusate Sodium 1 Tablet) 0 tablet PO DAILY [facility] Last Admin: 03/07/21 08:00 Dose: 2 tablet Documented by: Simethicone (Simethicone 80 Mg Tablet) 80 mg PO [facility] PRN PRN Reason: Indigestion/stomach pain Sodium Chloride (0.9% Saline Lock 10 Ml Syringe) 5 - 15 ml IV UD PRN PRN Reason: SALINE FLUSH Last Admin: 03/07/21 03:41 Dose: 10 ml Documented by: Zolpidem Tartrate (Zolpidem Tartrate 5 Mg Tablet) 5 mg ORAL QHS PRN PRN PRN Reason: Insomnia Medical Necessity - Tobacco Use Smoking Status: Never smoker Assessment/Plan All Active Problems Right facial numbness (Acute) Right arm numbness (Acute) POD#1 s/p PLTCS for previa. . Acute blood loss anemia secondary to surgery. Iron on home going. Home tomorrow.
[2021-03-07 13:50] VITALS: BP 107/71; PULSE 85; RESP 16; TEMP 36.8; O2SAT 100
[2021-03-07 14:21] VITALS: BP 117/70; PULSE 88; RESP 16; TEMP 36.4
[2021-03-07 21:23] VITALS: BP 115/72; PULSE 88; RESP 18; TEMP 36.6; O2SAT 98
[2021-03-07] MEDS: Enoxaparin 40 MG/0.4 ML Syringe SC (22:48)
[2021-03-07] MEDS: oxyCODONE 5 MG Tablet PO (22:48)
[2021-03-08] MEDS: Acetaminophen 500 MG Tablet 1000 MG PO ×2 (00:22→06:35)
[2021-03-08 01:44] VITALS: BP 112/57; PULSE 82; RESP 18; TEMP 36.5
--- NOTE | 2021-03-08 08:55 | PCM.PN.OB ---
Subjective: Patient without complaints. Positive flatus. Minimal vaginal bleeding. Pain is well controlled. Wants to go home later today. Objective: Mepilex dressing is clean without new discharge. Good urine output. - Physical Exam Vitals/I&O's: Vital Signs Temp Pulse Resp BP Pulse Ox 97.7 F L 82 18 112/57 L 98 03/08/21 01:44 03/08/21 01:44 03/08/21 01:44 03/08/21 01:44 03/07/21 21:23 Oxygen Delivery Method Room Air Weight: 192 lb 10.944 oz Body Mass Index (BMI) 31.1 Intake and Output for Last 24 Hours 03/06/21 03/07/21 03/08/21 23:59 23:59 23:59 Intake Total 4054.08 / 4054.08 Output Total 3350 / 3350 Balance 704.08 / 704.08 Current Medications Acetaminophen (Acetaminophen 500 Mg Tablet) 1,000 mg PO Q6 [facility] Last Admin: 03/08/21 06:35 Dose: 1,000 mg Documented by: Bisacodyl (Bisacodyl 10 Mg Suppository) 10 mg RC UD PRN PRN Reason: If no BM Enoxaparin Sodium (Enoxaparin 40 Mg/0.4 Ml Syringe) 40 mg SC DAILY@2200 [facility] Last Admin: 03/07/21 22:48 Dose: 40 mg Documented by: Hydrocortisone (Hydrocortisone 2.5% Crm) 1 applic TOPICAL TID PRN PRN; Protocol PRN Reason: Discomfort Naloxone HCl (Naloxone 0.4 Mg/Ml Syringe) 0.02 mg IV Q1M PRN PRN Reason: RR <10 and pt unresponsive Ondansetron HCl (Ondansetron 4 Mg/2 Ml Vial) 4 mg IV Q4H PRN PRN PRN Reason: Nausea Oxycodone HCl (Oxycodone 5 Mg Tablet) 5 - 10 mg PO Q4H PRN PRN PRN Reason: Pain Score 4-10 Last Admin: 03/07/21 22:48 Dose: 5 mg Documented by: Prochlorperazine Edisylate (Prochlorperazine 10 Mg/2 Ml Vial) 10 mg IV Q6H PRN PRN PRN Reason: NAUSEA Senna/Docusate Sodium (Senna/Docusate Sodium 1 Tablet) 0 tablet PO DAILY [facility] Last Admin: 03/07/21 08:00 Dose: 2 tablet Documented by: Simethicone (Simethicone 80 Mg Tablet) 80 mg PO [facility] PRN PRN Reason: Indigestion/stomach pain Last Admin: 03/07/21 09:46 Dose: 80 mg Documented by: Sodium Chloride (0.9% Saline Lock 10 Ml Syringe) 5 - 15 ml IV UD PRN PRN Reason: SALINE FLUSH Last Admin: 03/07/21 03:41 Dose: 10 ml Documented by: Zolpidem Tartrate (Zolpidem Tartrate 5 Mg Tablet) 5 mg ORAL QHS PRN PRN PRN Reason: Insomnia Medical Necessity - Tobacco Use Smoking Status: Never smoker Assessment/Plan All Active Problems Right facial numbness (Acute) Right arm numbness (Acute) Postoperative day #2 status post . Will discharge to home with routine instructions.
[2021-03-08 08:56] VITALS: BP 114/69; PULSE 99; RESP 16; TEMP 36.7; O2SAT 97
[2021-03-08 09:00] VITALS: BP 114/69; PULSE 99; RESP 16; TEMP 36.7; O2SAT 97
[2021-03-08] MEDS: Senna/Docusate Sodium 1 Tablet PO (10:26)
== END 2021-03-08 11:35 | disposition home or self-care (01) | DRG 787 ==
PROVIDERS: Admitting Provider Student in an Organized Health Care Education/Training Program; Visit Provider Student in an Organized Health Care Education/Training Program
PROC: 10D00Z1 Extraction of Products of Conception, Low, Open Approach (ICD-10-PCS; CPT 59514; principal; 2021-03-06 07:15)
DX: O44.03 Complete placenta previa NOS or without hemorrhage, third trimester (principal); K51.90 Ulcerative colitis, unspecified, without complications; D62 Acute posthemorrhagic anemia; O99.02 Anemia complicating childbirth; O99.62 Diseases of the digestive system complicating childbirth; Z3A.36 36 weeks gestation of pregnancy; Z37.0 Single live birth; N85.5 Inversion of uterus
CPT/HCPCS: 85025; 85027; 86850; 86900; 86901; 99218; J7120; A4216; G0378; J2405

== ENCOUNTER → 2021-04-17 10:09 | Outpatient (CLI) | payer OTHER, SELFPAY ==
[2021-03-06 05:40] VITALS: BMI 31.1
[2021-04-20 17:16] LABS: HPV Reflexed? NOT INDICATED
== END ==
PROVIDERS: Visit Provider Student in an Organized Health Care Education/Training Program
DX: Z12.4 Encounter for screening for malignant neoplasm of cervix (principal)
CPT/HCPCS: 88175; G0145

== ENCOUNTER 2021-12-18 11:50 | Outpatient (CLI) | payer OTHER, SELFPAY ==
[2021-12-18 12:55] LABS: hCG Titer Quant., Serum 34 mIU/mL (1-3)
== END 2021-12-18 23:59 | disposition short-term general hospital (02) ==
LOC: WOBLAB 11:53
PROVIDERS: Visit Provider Student in an Organized Health Care Education/Training Program
DX: O26.851 Spotting complicating pregnancy, first trimester (principal); Z3A.00 Weeks of gestation of pregnancy not specified
CPT/HCPCS: 36415; 84702

== ENCOUNTER 2021-12-20 11:40 | Outpatient (CLI) | payer OTHER, SELFPAY ==
[2021-12-20 13:03] LABS: hCG Titer Quant., Serum 74 mIU/mL (1-3)
== END 2021-12-20 23:59 | disposition short-term general hospital (02) ==
LOC: WOBLAB 11:41
PROVIDERS: Visit Provider Student in an Organized Health Care Education/Training Program
DX: O26.851 Spotting complicating pregnancy, first trimester (principal); Z3A.00 Weeks of gestation of pregnancy not specified
CPT/HCPCS: 36415; 84702

== ENCOUNTER 2021-12-22 11:25 | Outpatient (CLI) | payer OTHER, SELFPAY ==
[2021-12-22 13:14] LABS: hCG Titer Quant., Serum 142 mIU/mL (1-3)
== END 2021-12-22 23:59 | disposition short-term general hospital (02) ==
PROVIDERS: Visit Provider Student in an Organized Health Care Education/Training Program
DX: O26.851 Spotting complicating pregnancy, first trimester (principal); Z3A.00 Weeks of gestation of pregnancy not specified
CPT/HCPCS: 36415; 84702

== ENCOUNTER 2021-12-29 11:57 | Outpatient (CLI) | payer OTHER, SELFPAY ==
[2021-12-29 13:23] LABS: hCG Titer Quant., Serum 1057 mIU/mL (1-3)
== END 2021-12-29 23:59 | disposition short-term general hospital (02) ==
LOC: WOBLAB 11:59
PROVIDERS: Visit Provider Student in an Organized Health Care Education/Training Program
DX: O26.851 Spotting complicating pregnancy, first trimester (principal)
CPT/HCPCS: 36415; 84702

== ENCOUNTER 2022-01-04 11:04 | Outpatient (CLI) | payer OTHER, SELFPAY ==
[2022-01-04 12:12] LABS: hCG Titer Quant., Serum 2559 mIU/mL (1-3)
== END 2022-01-04 23:59 | disposition home or self-care (01) ==
LOC: WOBLAB 11:06
PROVIDERS: Visit Provider Student in an Organized Health Care Education/Training Program
DX: O26.851 Spotting complicating pregnancy, first trimester (principal)
CPT/HCPCS: 36415; 84702

== ENCOUNTER 2022-01-06 08:11 | Outpatient (CLI) | payer OTHER, SELFPAY ==
[2022-01-06 09:47] LABS: Hematocrit 38.5 % (37-47); Hemoglobin 12.5 g/dL (12.0-15.0); Mean Corp Hgb Conc 32.5 g/dL (32-36); Mean Corpuscular Hgb 28.5 pg (27.0-32.0); Mean Corpuscular Volume 87.9 fL (81-99); Platelet Count 275 K/mm3 (150-450); RBC Distribution Width CV 12.3 % (11.6-14.6); RBC Distribution Width SD 39.8 fl (35.1-43.9); Red Blood Count 4.38 M/mm3 (4.2-5.4)
[2022-01-06 10:03] LABS: ALB/GLOB Ratio 1.2 RATIO (0.9-2.4); AST(SGOT) 11 U/L (15-37); Alanine Aminotransfer ALT/SGPT 13 U/L (13-56); Albumin, Serum 4.1 g/dL (3.2-5.0); Alkaline Phosphatase 108 U/L (45-117); Anion Gap 4 (5-15); BUN 9 mg/dL (7-18); BUN/Creat Ratio 15.9 RATIO (10-20); Calcium,Total 8.6 mg/dL (8.5-10.1); Chloride 108 mmol/L (98-107); Creatinine, Serum 0.57 mg/dL (0.55-1.02); EST Glomerular Filtration Rate 134 mL/min (>60); Est Glom Filt Rate - Afr Amer 162 mL/min (>60); Globulin 3.4 g/dL (2.2-4.2); Glucose 95 mg/dL (74-106); Potassium 3.8 mmol/L (3.5-5.1); Protein, Total 7.5 g/dL (6.4-8.2); Sodium Level 138 mmol/L (136-145)
[2022-01-06 10:29] LABS: hCG Titer Quant., Serum 3497 mIU/mL (1-3)
== END 2022-01-06 23:59 | disposition home or self-care (01) ==
PROVIDERS: PCP Family Medicine; Referring Provider Student in an Organized Health Care Education/Training Program; Visit Provider Student in an Organized Health Care Education/Training Program
DX: O36.80X0 Pregnancy with inconclusive fetal viability, not applicable or unspecified (principal)
CPT/HCPCS: 36415; 80053; 84702; 85027

== ENCOUNTER 2022-01-08 12:33 | Outpatient (CLI) | payer OTHER, SELFPAY ==
[2022-01-08 13:40] LABS: Estradiol 92.7 pg/mL
[2022-01-08 13:49] LABS: Progesterone Level 11.71 ng/mL (See Comment)
[2022-01-08 14:01] LABS: hCG Titer Quant., Serum 5624 mIU/mL (1-3)
== END 2022-01-08 23:59 | disposition home or self-care (01) ==
PROVIDERS: PCP Family Medicine; Visit Provider Obstetrics & Gynecology
DX: O02.81 Inappropriate change in quantitative human chorionic gonadotropin (hCG) in early pregnancy (principal)
CPT/HCPCS: 36415; 82627; 82670; 84144; 84702; 82626

== ENCOUNTER 2022-02-14 16:41 | Outpatient (CLI) | payer OTHER, SELFPAY ==
[2022-02-14 17:00] LABS: Absolute Lymphocyte Count 2.13 X10^3/uL (0.83-4.51); Absolute Neutrophil Count 4.4 X10^3/uL (2.0-7.7); Basophil# 0.03 X10^3/uL; Basophil% 0.4 % (0-1); Eosinophil# 0.17 X10^3/uL; Eosinophils% 2.4 % (0-5); Hematocrit 37.6 % (37-47); Hemoglobin 13.2 g/dL (12.0-15.0); Lymphocyte # 2.13 X10^3/ul (0.83-4.51); Lymphocyte % 29.5 % (19-41); Mean Corp Hgb Conc 35.1 g/dL (32-36); Mean Corpuscular Hgb 29.8 pg (27.0-32.0); Mean Corpuscular Volume 84.9 fL (81-99); Mean Platelet Vol. 9.7 fl (6.2-12.0); Monocyte# 0.51 X10^3/uL; Monocyte% 7.1 % (0-10); NRBC Flagged by Analyzer 0 % (0-5); Neutrophil # 4.37 X10^3/uL (2.7-7.7); Neutrophil % 60.3 % (47-70); Platelet Count 255 K/mm3 (150-450); RBC Distribution Width CV 12.2 % (11.6-14.6); RBC Distribution Width SD 37.6 fl (35.1-43.9); Red Blood Count 4.43 M/mm3 (4.2-5.4); White Blood Count 7.2 K/mm3 (4.4-11.0)
[2022-02-14 17:12] LABS: Erythrocyte Sedimentation Rate 17 mm/hr (0-30)
[2022-02-14 17:30] LABS: ALB/GLOB Ratio 1.1 RATIO (0.9-2.4); AST(SGOT) 15 U/L (15-37); Alanine Aminotransfer ALT/SGPT 15 U/L (13-56); Albumin, Serum 4.1 g/dL (3.2-5.0); Alkaline Phosphatase 84 U/L (45-117); Anion Gap 6 (5-15); BUN 9 mg/dL (7-18); BUN/Creat Ratio 21.4 RATIO (10-20); CRP 9.79 mg/L (0.0-3.0); Calcium,Total 9.3 mg/dL (8.5-10.1); Chloride 102 mmol/L (98-107); Creatinine, Serum 0.42 mg/dL (0.55-1.02); EST Glomerular Filtration Rate 188 mL/min (>60); Est Glom Filt Rate - Afr Amer 228 mL/min (>60); Globulin 3.7 g/dL (2.2-4.2); Glucose 99 mg/dL (74-106); LDH 180 U/L (84-246); Potassium 3.5 mmol/L (3.5-5.1); Protein, Total 7.8 g/dL (6.4-8.2); Sodium Level 136 mmol/L (136-145)
[2022-02-16 13:08] LABS: Anti-Centromere B Ab <0.2 AI (0.0-0.9); Anti-Chromatin <0.2 AI (0.0-0.9); Anti-Jo <0.2 AI (0.0-0.9); Anti-Scleroderma-70 AB <0.2 AI (0.0-0.9); RNP Ab <0.2 AI (0.0-0.9); SJOGREN'S Anti-SS-A test < 0.2 AI (0.0-0.9); SJOGREN'S Anti-SS-B test < 0.2 AI (0.0-0.9); Smith Ab <0.2 AI (0.0-0.9)
[2022-02-16 15:46] LABS: Anti-dsDNA Ab <1 IU/mL (0-9)
[2022-02-21 17:07] LABS: Cytoplasmic Ab (C-ANCA) <1:20 titer (Neg:<1:20); Endomysial Antibody IgA Negative (Negative); Immunoglobulin A 89 mg/dL (87-352); Immunoglobulin E 6 IU/mL (6-495); Immunoglobulin G 1112 mg/dL (586-1602)
[2022-02-21 21:23] LABS: Immunoglobulin M 98 mg/dL (26-217); Perinuclear Ab (P-ANCA) <1:20 titer (Neg:<1:20); t-Transglutaminase IgA <2 U/mL (0-3)
== END 2022-02-14 23:59 | disposition home or self-care (01) ==
LOC: LAB 16:42
PROVIDERS: PCP Family Medicine; Referring Provider Internal Medicine Gastroenterology; Visit Provider Internal Medicine Gastroenterology
DX: K51.90 Ulcerative colitis, unspecified, without complications (principal)
CPT/HCPCS: 36415; 80053; 82784; 82785; 83516; 83615; 85025; 85652; 86140; 86225; 86235; 86255; 86256

== ENCOUNTER → 2022-04-26 | Outpatient (CLI) | payer OTHER, SELFPAY ==
[2022-05-02 09:30] LABS: Calprotectin, Stool 21 ug/g (0-120)
== END | disposition home or self-care (01) ==
LOC: LABSPEC 08:18
PROVIDERS: PCP Family Medicine; Referring Provider Internal Medicine Gastroenterology; Visit Provider Internal Medicine Gastroenterology
DX: K51.90 Ulcerative colitis, unspecified, without complications (principal)
CPT/HCPCS: 83630; 83993

== ENCOUNTER → 2022-05-04 | Outpatient (CLI) | payer OTHER, SELFPAY ==
[2022-05-04 10:53] LABS: CRP < 2.90 mg/L (0.0-3.0)
== END | disposition home or self-care (01) ==
LOC: LAB 09:05
PROVIDERS: PCP Family Medicine; Visit Provider Internal Medicine Gastroenterology
DX: K51.90 Ulcerative colitis, unspecified, without complications (principal)
CPT/HCPCS: 36415; 86140

== ENCOUNTER 2022-06-25 07:30 | Outpatient (CLI) | payer OTHER, SELFPAY ==
[2022-06-25 08:31] LABS: hCG Titer Quant., Serum 2 mIU/mL (1-3)
== END 2022-06-25 23:59 | disposition home or self-care (01) ==
LOC: LAB 07:32
PROVIDERS: PCP Family Medicine; Referring Provider Student in an Organized Health Care Education/Training Program; Visit Provider Student in an Organized Health Care Education/Training Program
DX: O20.0 Threatened abortion (principal)
CPT/HCPCS: 36415; 84702

== ENCOUNTER → 2022-07-31 | Outpatient (CLI) | payer OTHER, SELFPAY ==
[2022-08-07 15:59] LABS: HPV Reflexed? NOT INDICATED
== END | disposition home or self-care (01) ==
LOC: LABSPEC 15:39
PROVIDERS: PCP Family Medicine; Visit Provider Student in an Organized Health Care Education/Training Program
DX: Z12.4 Encounter for screening for malignant neoplasm of cervix (principal)
CPT/HCPCS: 88175; G0145

== ENCOUNTER → 2022-08-13 | Outpatient (CLI) | payer OTHER, SELFPAY ==
[2022-08-13 10:25] LABS: hCG Titer Quant., Serum 8 mIU/mL (1-3)
== END | disposition home or self-care (01) ==
LOC: WOBLAB 09:32
PROVIDERS: PCP Family Medicine; Visit Provider Student in an Organized Health Care Education/Training Program
DX: N91.1 Secondary amenorrhea (principal)
CPT/HCPCS: 36415; 84702

== ENCOUNTER → 2022-08-15 | Outpatient (CLI) | payer OTHER, SELFPAY ==
[2022-08-15 10:50] LABS: hCG Titer Quant., Serum 36 mIU/mL (1-3)
== END | disposition home or self-care (01) ==
LOC: WOBLAB 09:17
PROVIDERS: PCP Family Medicine; Visit Provider Obstetrics & Gynecology
DX: N91.2 Amenorrhea, unspecified (principal)
CPT/HCPCS: 36415; 84702

== ENCOUNTER 2022-12-14 06:33 | Emergency (ER) | payer OTHER, SELFPAY ==
[2022-12-14 06:34] VITALS: BP 134/69; PULSE 99; RESP 18; TEMP 36.6; O2SAT 98; BMI 28.0
[2022-12-14] MEDS: Ondansetron 4 MG/2 ML Vial IV (06:53)
[2022-12-14] MEDS: 0.9% Normal Saline 1,000 ML 999 ML IV ×2 (06:53→07:24)
[2022-12-14 06:55] LABS: Absolute Lymphocyte Count 1.02 X10^3/uL (0.83-4.51); Absolute Neutrophil Count 9.3 X10^3/uL (2.0-7.7); Basophil# 0.03 X10^3/uL; Basophil% 0.3 % (0-1); Eosinophil# 0.04 X10^3/uL; Eosinophils% 0.4 % (0-5); Hematocrit 36.8 % (37-47); Hemoglobin 12.2 g/dL (12.0-15.0); Lymphocyte # 1.02 X10^3/ul (0.83-4.51); Lymphocyte % 9.4 % (19-41); Mean Corp Hgb Conc 33.2 g/dL (32-36); Mean Corpuscular Hgb 29.1 pg (27.0-32.0); Mean Corpuscular Volume 87.8 fL (81-99); Mean Platelet Vol. 10.4 fl (6.2-12.0); Monocyte# 0.28 X10^3/uL; Monocyte% 2.6 % (0-10); NRBC Flagged by Analyzer 0 % (0-5); Neutrophil # 9.34 X10^3/uL (2.7-7.7); Neutrophil % 86.5 % (47-70); POSITIVE COUNT YES; Platelet Count 171 K/mm3 (150-450); RBC Distribution Width CV 13.2 % (11.6-14.6); RBC Distribution Width SD 41.9 fl (35.1-43.9); Red Blood Count 4.19 M/mm3 (4.2-5.4); White Blood Count 10.8 K/mm3 (4.4-11.0)
[2022-12-14 06:57] LABS: Differential Indicated SCAN CRITERIA MET
[2022-12-14 07:09] LABS: AST(SGOT) 18 U/L (15-37); Alanine Aminotransfer ALT/SGPT 16 U/L (13-56); Albumin, Serum 3.4 g/dL (3.2-5.0); Alkaline Phosphatase 61 U/L (45-117); Anion Gap 9 (5-15); BUN 5 mg/dL (7-18); BUN/Creat Ratio 9.2 RATIO (10-20); Bilirubin, Direct 0.14 mg/dL (0.00-0.30); Calcium,Total 8.7 mg/dL (8.5-10.1); Chloride 105 mmol/L (98-107); Creatinine, Serum 0.54 mg/dL (0.55-1.02); EST Glomerular Filtration Rate 140 mL/min (>60); Est Glom Filt Rate - Afr Amer 169 mL/min (>60); Estimated Creatinine Clearance 142.61 ml/min; Globulin 3.8 g/dL (2.2-4.2); Glucose 100 mg/dL (74-106); Magnesium 1.8 mg/dL (1.6-2.6); Potassium 3.7 mmol/L (3.5-5.1); Protein, Total 7.2 g/dL (6.4-8.2); Sodium Level 138 mmol/L (136-145)
[2022-12-14 07:12] LABS: Differential Comment SCANNED; Platelet Estimate ADEQUATE (ADEQ)
--- NOTE | 2022-12-14 07:15 | EX.ED.DYSGE1 ---
HPI History of Present Illness Chief Complaint: Nausea/Vomiting Narrative Narrative: Patient is a female who is currently 21 weeks with past medical history of ulcerative colitis. She states that she began with bouts of vomiting around 530 yesterday which persisted all night. She states that despite her history of ulcer colitis there is been no loose stool/diarrhea or bloody stool. She denies any fevers or chills she denies any known sick contacts. She states has been no vaginal discharge or bleeding or abdominal pain. 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 [facility] Home Medications vit no.95-ferrous fumarate 28 mg-folic acid 800 mcg tablet 1 ea PO DAILY 01/25/21 [History Last Taken 03/05/21] mesalamine 1.2 gram tablet,delayed release 2.4 g PO BID colitis #360 tabs 11/13/22 [Rx Last Taken Unknown] ondansetron 4 mg disintegrating tablet 4 mg PO TID PRN nausea and vomiting #21 tabs 12/14/22 [Rx Last Taken Unknown] Allergy/AdvReac Type Severity Reaction Status Date / Time No Known Allergies Allergy Verified 12/14/22 06:38 Social History Smoking Status: Never smoker [facility] ED Constitutional Constitutional ED: Denies chills or fever(s) ENT ENT ED: Denies sore throat Cardiovascular Cardiovascular: Denies chest pain Respiratory/Chest Respiratory/Chest: Denies cough or dyspnea Gastrointestinal Gastrointestinal: Reports nausea and vomiting; Denies abdominal pain or diarrhea Genitourinary Genitourinary ED: Denies dysuria or hematuria Musculoskeletal Musculoskeletal: Reports myalgias Integumentary Denies rash Neurologic Neurologic: Denies headache(s) Hematologic/Lymphatic Hematologic/Lymphatic: Denies easy bleeding or easy bruising EXAM Physical Exam Const Vital Signs: 12/14/22 06:34 Temperature 97.9 F Temperature Source Oral Pulse Rate 99 Respiratory Rate 18 Blood Pressure 134/69 H Blood Pressure Mean 90 Pulse Ox 98 Oxygen Delivery Method Room Air Positive well nourished and well developed General Appearance ED: well developed HEENT HEENT Narrative: Mucous membranes are dry and tacky No secondary changes in the posterior pharynx to suggest infection Eyes PERRL and EOMs intact bilaterally General Eye ED: Negative for scleral icterus Neck supple Neck Narrative: No crepitance palpated no pain with external manipulation of the thyroid cartilage Resp normal respiratory effort and clear to auscultation bilaterally Cardio regular rate and regular rhythm Rate: other Other Details: Radial pulses are +2-4 bilaterally are equal and symmetric GI non-tender and non-distended GI Narrative: Abdomen is gravid with fundus consistent with reported gestational age. No pain with palpation. No guarding or rigidity. No increased tympany. Auscultation: normoactive bowel sounds Palpation: soft Extremity normal to inspection Extremity Narrative: No asymmetric edema no pitting edema negative Homans' sign bilaterally Neuro oriented x3 and CN's II-XII intact bilaterally Sensorium / Orientation: alert Psych mental status grossly normal Skin no rashes or lesions noted and skin turgor normal MDM MDM MDM Narrative Medical decision making narrative: Patient presented to the ER with stable vitals and a soft nonsurgical abdomen. She denied any severe abdominal pain vaginal bleeding or discharge and therefore there is no reason to send her straight to OB for further evaluation. With her reports of multiple episodes of vomiting about the evening there is concern for dehydration and her mucous membranes to suggest mild dehydration by exam. Basic blood work was obtained which showed no leukocytosis no signs of acute kidney injury or electrolyte. Also there were no elevations to her liver enzymes or decreased platelet count to suggest help syndrome. Patient was given 2 L of fluid as well as a dose of Zofran and there was no further bouts of vomiting the ER. heart tones were also obtained and were normal at 148 indicating no signs of distress. Therefore at this time with patient being rehydrated not having any further bouts of vomiting and work-up showing no signs of acute kidney injury or severe electrolyte derangement she is otherwise safe for discharge Lab Data Attestation: I reviewed the patient's lab results. Labs: Laboratory Results - last 24 hr 12/14/22 12/14/22 06:45 06:45 WBC 10.8 RBC 4.19 L Hgb 12.2 Hct 36.8 L MCV 87.8 MCH 29.1 MCHC 33.2 RDW Std Deviation 41.9 RDW Coeff of Bronwyn 13.2 Plt Count 171 MPV 10.4 Immature Gran % (Auto) 0.800 Neut % (Auto) 86.5 H Lymph % (Auto) 9.4 L [place] % (Auto) 2.6 Eos % (Auto) 0.4 Baso % (Auto) 0.3 Absolute Neuts (auto) 9.3 H Absolute Lymphs (auto) 1.02 Nucleated RBC % 0 Differential Comment SCANNED Platelet Estimate ADEQUATE Sodium 138 Potassium 3.7 Chloride 105 Carbon Dioxide 24.0 Anion Gap 9 BUN 5 L Creatinine 0.54 L Estim Creat Clear Calc 142.61 Est GFR (MDRD) Af Amer 169 Est GFR (MDRD) Non-Af 140 BUN/Creatinine Ratio 9.2 L Glucose 100 Calcium 8.7 Magnesium 1.8 Total Bilirubin 0.60 Direct Bilirubin 0.14 AST 18 ALT 16 Alkaline Phosphatase 61 Total Protein 7.2 Albumin 3.4 Globulin 3.8 Discharge Plan Triage Chief Complaint: Nausea/Vomiting ED Provider: Cliff Naranjo Dx/Rx/DC Orders Clinical Impression: Hyperemesis gravidarum, Mild dehydration, History of ulcerative colitis Instructions: Dehydration, ED Hyperemesis Gravidarum Prescriptions: New ondansetron 4 mg tablet,disintegrating 4 mg PO TID PRN (Reason: nausea and vomiting) Qty: 21 0RF No Action PNV cmb#95-ferrous fumarate-FA 1 EACH tablet 1 ea PO DAILY mesalamine 1.2 gram tablet,delayed release (DR/EC) 2.4 g PO BID Qty: 360 3RF Rx Instructions: Takes with food Primary Care Provider: Anderson Lombardi Referrals: Mirta Campbell DO [Med Staff - Active Staff] - Anderson Lombardi MD [Primary Care Provider] - Activity Restrictions/Additional Instructions: Please try to keep yourself well-hydrated use the Zofran as necessary for nausea/vomit control and return to the ER should you have any further concerns Disposition Disposition: Home, Self Care
[2022-12-14 07:46] LABS: Color, Urine Yellow (Yellow); Glucose, Dipstick Normal (Normal); Leukocyte Esterase-Dipstick 25 /ul (Negative); Nitrite-Dipstick Negative (Negative); Occult Blood-Urine 10 /ul (Negative); Protein-Dipstick 15 mg/dl (Negative); Urine Bilirubin Dipstick Negative (Negative); Urine Clarity Cloudy (Clear); Urine Urobilinogen Normal (Normal); Urine pH 6.5 (5.0 - 8.0)
[2022-12-14 07:49] LABS: Ketone-Dipstick 150 mg/dl (Negative)
[2022-12-14 08:04] LABS: Bacteria 1+ /hpf (None Seen); Mucous, Urine 1+ /hpf (<or=2+); Red Blood Cells-Urine 0-5 SEEN /hpf (0-5); Squamous Epithelial Cells - UA 0-5 SEEN /hpf (5-10); White Blood Cells 0-5 SEEN /hpf (0-5)
[2022-12-14 08:25] VITALS: BP 130/68; PULSE 82; RESP 14; O2SAT 99
== END 2022-12-14 08:26 | disposition home or self-care (01) ==
PROVIDERS: Emergency Provider Emergency Medicine; PCP Family Medicine; Visit Provider Emergency Medicine
DX: O21.1 Hyperemesis gravidarum with metabolic disturbance (principal); O99.282 Endocrine, nutritional and metabolic diseases complicating pregnancy, second trimester; E86.0 Dehydration; Z3A.21 21 weeks gestation of pregnancy; Z87.19 Personal history of other diseases of the digestive system
CPT/HCPCS: 80048; 80076; 81001; 83735; 85025; 99283; J7030; A4216; J2405

== ENCOUNTER 2023-01-26 08:15 | Outpatient (CLI) | payer OTHER, SELFPAY ==
[2023-01-26 08:24] VITALS: BMI 28.3
[2023-01-26 08:36] VITALS: BP 100/59; PULSE 79; TEMP 36.9
[2023-01-26 08:57] LABS: Mucous, Urine 0 SEEN /hpf (<or=2+)
[2023-01-26 09:02] LABS: Color, Urine Yellow (Yellow); Glucose, Dipstick Normal (Normal); Ketone-Dipstick Negative (Negative); Leukocyte Esterase-Dipstick 100 /ul (Negative); Nitrite-Dipstick Negative (Negative); Occult Blood-Urine 150 /ul (Negative); Protein-Dipstick 30 mg/dl (Negative); Specific Gravity, Urine 1.015 (1.002-1.030); Urine Bilirubin Dipstick Negative (Negative); Urine Clarity Cloudy (Clear); Urine Urobilinogen Normal (Normal)
[2023-01-26 09:32] LABS: Bacteria 1+ /hpf (None Seen); Red Blood Cells-Urine 5-10 SEEN /hpf (0-5); Squamous Epithelial Cells - UA 10-25 SEEN /hpf (5-10); White Blood Cells 5-10 SEEN /hpf (0-5)
[2023-01-26 10:20] LABS: Absolute Lymphocyte Count 2.21 X10^3/uL (0.83-4.51); Absolute Neutrophil Count 11.6 X10^3/uL (2.0-7.7); Basophil# 0.05 X10^3/uL; Basophil% 0.3 % (0-1); Eosinophil# 0.18 X10^3/uL; Eosinophils% 1.2 % (0-5); Hematocrit 34.1 % (37-47); Hemoglobin 11.6 g/dL (12.0-15.0); Lymphocyte # 2.21 X10^3/ul (0.83-4.51); Lymphocyte % 14.8 % (19-41); Mean Corpuscular Hgb 29.8 pg (27.0-32.0); Mean Corpuscular Volume 87.7 fL (81-99); Mean Platelet Vol. 10.3 fl (6.2-12.0); Monocyte# 0.71 X10^3/uL; Monocyte% 4.8 % (0-10); NRBC Flagged by Analyzer 0 % (0-5); Neutrophil # 11.58 X10^3/uL (2.7-7.7); Neutrophil % 77.6 % (47-70); Platelet Count 239 K/mm3 (150-450); RBC Distribution Width CV 13.4 % (11.6-14.6); RBC Distribution Width SD 43.1 fl (35.1-43.9); Red Blood Count 3.89 M/mm3 (4.2-5.4); White Blood Count 14.9 K/mm3 (4.4-11.0)
[2023-01-26] MEDS: Lactated Ringers 1,000 ML 999 ML IV (10:22)
[2023-01-26] MEDS: Ondansetron 4 MG/2 ML Vial IV ×2 (10:23→16:23)
[2023-01-26] MEDS: cycloBENZAPRine HCl 10 MG Tablet PO (10:27)
[2023-01-26 10:41] LABS: ALB/GLOB Ratio 0.8 RATIO (0.9-2.4); AST(SGOT) 20 U/L (15-37); Alanine Aminotransfer ALT/SGPT 11 U/L (13-56); Albumin, Serum 3.1 g/dL (3.2-5.0); Alkaline Phosphatase 66 U/L (45-117); Anion Gap 6 (5-15); BUN 6 mg/dL (7-18); BUN/Creat Ratio 11.2 RATIO (10-20); Calcium,Total 8.8 mg/dL (8.5-10.1); Chloride 105 mmol/L (98-107); Creatinine, Serum 0.54 mg/dL (0.55-1.02); EST Glomerular Filtration Rate 141 mL/min (>60); Est Glom Filt Rate - Afr Amer 171 mL/min (>60); Estimated Creatinine Clearance 142.61 ml/min; Globulin 3.8 g/dL (2.2-4.2); Glucose 96 mg/dL (74-106); Potassium 4.1 mmol/L (3.5-5.1); Protein, Total 6.9 g/dL (6.4-8.2); Sodium Level 136 mmol/L (136-145)
[2023-01-26 11:34] VITALS: BP 102/67; PULSE 81
[2023-01-26 11:35] VITALS: TEMP 36.8
[2023-01-26] MEDS: Lactated Ringers 1,000 ML 150 ML IV ×2 (11:41→17:59)
[2023-01-26] MEDS: Acetaminophen 500 MG Tablet 1000 MG PO ×2 (11:41→17:45)
--- NOTE | 2023-01-26 12:59 | PCM.HP.BLA ---
History and Physical Date of Admission: 01/26/23 HPI: 32-year-old G3, P1 at 26/6 weeks, ROXANNE 04/28/2023 by LMP, admitted for back pain. Patient reports pain started yesterday, overnight was improved with supportive measures heat, Tylenol, stretching. This morning pain was worse. She then reported diarrhea and episode of emesis. Pain was originally higher on her right side on her back, now lower towards the hip and wraps around slightly. Pain is a constant dull ache, with intermittent worsening of pain in that area. Reports movement. Denies contractions, leaking of fluid, vaginal bleeding. Denies fevers or chills, headache or vision changes, chest pain or shortness of breath, rashes. 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 Ulcerative colitis 2. 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 Valtrex 2. Folic acid 3. Colace 4. Lialda 5. Phenergan Surgical history: 1. [place] tooth extraction 2. Dilation curettage Allergies: No known drug allergies Social history: Denies tobacco, alcohol, drug use Family history: Denies Review of system: Negative otherwise stated above Physical exam: Blood pressure 102/67, heart rate 81, temp 98.2 ?F General: No acute distress, seated in bed HEENT: Normal cephalic/atraumatic, PERRLA Cardiorespiratory: No increased effort, regular heart rate Abdomen: Soft, nontender, no rebound or guarding, gravid Musculoskeletal: No CVA tenderness, no tenderness to palpation of paraspinal muscles or hips Extremities: No edema Neurologic: Cranial nerves II through XII grossly intact CE cl/th/hi heart rate: 135/mod julián/+accel/no decel [place]: quiet Assessment/plan: 32-year-old G3, P1 at 26/6 weeks, ROXANNE 04/28/2023 by LMP, admitted for back pain. ?Working diagnosis pyelonephritis versus nephrolithiasis. Patient is afebrile, mild leukocytosis. CBC and CMP otherwise within normal limits. Suspicious urinalysis for urinary tract infection. Urine culture is pending. ?Treated with Rocephin 2 g, will continue every 24 hours while inpatient. ?Pain control with Tylenol, oxycodone, Flexeril as needed. Nausea control with Phenergan and Zofran. ?Clinically patient does not appear to have nephrolithiasis although pain is constant with intermittent worsening. In regards to other working diagnosis of pyelonephritis, patient is afebrile. She does not have any CVA tenderness. ?No signs of labor. Cervix is closed at this time, not billy. ?We will continue to monitor. heart rate for 20 minutes every shift. We will IV fluid hydrate. ?If pain worsens, will do CT abdomen and pelvis to evaluate for kidney stone. ?Patient feels like she is feeling improved with Tylenol. Dispo: Likely home tomorrow if feeling improved. We will continue to monitor. If she worsens, will plan CT abdomen and pelvis, if improving greatly may consider discharge home this evening. All questions answered. Reviewed plan of care with bedside nurse.
[2023-01-26 15:17] VITALS: TEMP 37.1
[2023-01-26 15:18] VITALS: BP 91/55; PULSE 75
[2023-01-26 19:43] VITALS: BP 114/57; PULSE 84; TEMP 36.9
== END 2023-01-26 21:04 | disposition home or self-care (01) ==
LOC: WPOUT 08:22 → WP 08:23
PROVIDERS: PCP Family Medicine; Visit Provider Student in an Organized Health Care Education/Training Program
DX: O26.892 Other specified pregnancy related conditions, second trimester (principal); M54.9 Dorsalgia, unspecified; Z3A.26 26 weeks gestation of pregnancy
CPT/HCPCS: 96365; 96375; 96361 ×9; 59025; 59050; 80053; 81001; 85025; 87086; 87088; 99221; J7120; G0378; J0696; J2405

== ENCOUNTER 2023-04-09 05:00 | Inpatient (IN) | payer OTHER, SELFPAY ==
[2023-04-09] VITALS (19 sets, daily range): BP systolic 98–125; BP diastolic 53–82; PULSE 75–113; RESP 14–18; TEMP 36.1–36.8; O2SAT 97–100; BMI 30.9
[2023-04-09] MEDS: Lactated Ringers 1,000 ML 999 ML IV (05:45)
[2023-04-09 06:10] LABS: Absolute Lymphocyte Count 2.79 X10^3/uL (0.83-4.51); Absolute Neutrophil Count 9.2 X10^3/uL (2.0-7.7); Basophil# 0.06 X10^3/uL; Basophil% 0.4 % (0-1); Eosinophil# 0.53 X10^3/uL; Eosinophils% 3.9 % (0-5); Hematocrit 29.4 % (37-47); Hemoglobin 9.5 g/dL (12.0-15.0); Lymphocyte # 2.79 X10^3/ul (0.83-4.51); Lymphocyte % 20.7 % (19-41); Mean Corp Hgb Conc 32.3 g/dL (32-36); Mean Corpuscular Hgb 27.9 pg (27.0-32.0); Mean Corpuscular Volume 86.5 fL (81-99); Mean Platelet Vol. 10.8 fl (6.2-12.0); Monocyte# 0.75 X10^3/uL; Monocyte% 5.6 % (0-10); NRBC Flagged by Analyzer 0 % (0-5); Neutrophil # 9.17 X10^3/uL (2.7-7.7); Neutrophil % 68.1 % (47-70); Platelet Count 208 K/mm3 (150-450); RBC Distribution Width CV 13.5 % (11.6-14.6); RBC Distribution Width SD 42.5 fl (35.1-43.9); White Blood Count 13.5 K/mm3 (4.4-11.0)
[2023-04-09] MEDS: Acetaminophen 500 MG Tablet 1000 MG PO ×3 (06:24→17:47)
--- NOTE | 2023-04-09 06:52 | PCM.HP.BLA ---
History and Physical Date of Admission: 04/09/23 HPI: 32-year-old G3, P1 at 37/2 weeks, ROXANNE 04/28/2023 by LMP, admitted for repeat section, cholestasis. Denies headache or vision changes, chest pain or shortness of breath, nausea or vomiting, diarrhea constipation, fevers or chills. Reports movement. Denies regular contractions, leaking of fluid, vaginal bleeding. complicated by: Cholestasis, ulcerative colitis well-controlled, Teja pouch cyst status post MFM consult (for postdelivery follow-up). 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 Ulcerative colitis 2. Oral HSV Surgical history: 1. section 2. Dilation curettage 3. LASEK 4. [place] tooth extraction Medications: 1. Pepcid 2. Mesalamine 3. Zofran 4. Renal vitamin 5. Phenergan 6. Ursodiol 7. Valtrex Allergies: No known drug allergies Social history: Denies tobacco, alcohol, drug use Family history: Noncontributory, no history of blood clots or bleeding disorders Physical exam: Vitals: Blood pressure 116/74, heart rate 91, respiratory rate 18, temp 98.2 ?F, oxygen saturation 99% on room air General: No acute distress HEENT: Normal cephalic/atraumatic Cardiorespiratory: No increased effort Abdomen: Soft, nontender, gravid Extremities: No edema Neurologic: Cranial nerves II through XII grossly intact, no focal deficits Musculoskeletal: Moves all extremities equally heart rate:130/mod julián/+accel/no decel [place]: occasional ctx Assessment/plan: 32-year-old G3, P1 at 37/2 weeks, ROXANNE 04/28/2023 by LMP, admitted for repeat section, cholestasis. complicated by: Cholestasis, ulcerative colitis well-controlled, Teja pouch cyst status post MFM consult (for postdelivery follow-up). ?Admit for repeat section ? 2 g Ancef preop ? Stop ursodiol ? GBS negative
[2023-04-09] MEDS: Lactated Ringers 1,000 ML 150 ML IV (06:53)
[2023-04-09] MEDS: Sodium Citrate/Citric Acid 30 ML UDC PO (06:54)
[2023-04-09] MEDS: Cefazolin 2 GM in 0.9% Normal Saline 100 ML IV (07:03)
--- NOTE | 2023-04-09 08:02 | EX.PCM.OBRPT ---
Maternal Data Information Final ROXANNE: 04/28/23 Details Operative Information Date of Procedure: 04/09/23 Pre-Operative Diagnosis: Martinez intrauterine , Cholestasis Post-Operative Diagnosis: Martinez intrauterine , Cholestasis Indications for : Repeat Elective Indications Narrative: 32-year-old G3, P1 at 37/2 weeks admitted for repeat section, with cholestasis. All risk, benefits, alternatives discussed with the patient. Risk include but not limited to: Risk of bleeding twin transfusion, infection, injury to surrounding tissue including bowel/bladder potentially requiring prolonged Orellana catheter use, VTE, ICU admission. Patient aware and consented. Classification: Scheduled Procedure Type: low transverse Type of Anesthesia: Spinal Estimated Blood Loss: 800 cc Fluids Replaced: 1000 cc Findings Description of Procedure: Patient taken the operating room and spinal anesthesia placed. Patient placed in the supine position with a left lateral tilt. Prepped and draped in the usual sterile fashion. Pfannenstiel skin incision made with scalpel and carried down through subcutaneous tissue. Subcutaneous adhesions noted, with thickened subcutaneous tissue. Fascia nicked on either side of midline and extended bilaterally using Gonzales scissors. Gwendolyn clamps grasped. Fascial edge which was tented up and underlying rectus muscles were dissected off sharply using Gonzales scissors. Gwendolyn clamps moved to the inferior fascial edge which was tented up and underlying rectus muscles were dissected off in a similar fashion. Adhesions of the peritoneum to the fascia were noted. Rectus muscle at midline superiorly, peritoneum grasped with 2 hemostats, incised with Metzenbaum scissors. Peritoneum extended bluntly. Bladder placed placed. Low transverse uterine incision made with scalpel and extended bluntly. Amniotomy clear fluid. Hand placed into the uterine cavity and head elevated to low the level of the hysterotomy. With the assistance of gentle fundal pressure head delivered followed by body. No nuchal cord. Cord clamped and cut. Baby to nursing. Manual extraction of placenta. Uterus exteriorized and cleared of clots and membranes with a lap. Gentle banjo curettage completed of the endometrial cavity, no placental tissue or membranes noted with curettage. Hysterotomy closed with a running stitch followed by a second horizontal imbricating stitch. Hemostatic with 1 [id number] suture at the left hysterotomy angle. Uterus replaced into the abdominal cavity. Hysterotomy confirmed to be hemostatic. Peritoneum closed with a running stitch. Muscle reapproximated with horizontal mattress suture. Fascia closed with running stitch. Subcutaneous tissue reapproximated with suture after irrigation. Skin closed with a running subcuticular stitch. At the end of the procedure all needle, lap, sponge counts were correct. UOP: 75 cc clear urine Infant A Gender: Female (1 minute): 9 (5 minute): 9 Complications Complications: None
[2023-04-09] MEDS: Oxytocin 15 Units/NS 250ml 15 UNITS/250 ML IV.SOLN 83 UNITS IV (08:15)
[2023-04-09 08:29] LABS: Syphilis Antibodies Non-reactive
[2023-04-09] MEDS: Ketorolac 30 MG/ML Syringe IV ×3 (08:40→20:15)
[2023-04-09 09:27] LABS: HIV - WCH Non-Reactive (Nonreactive); Hepatitis C Antibody Non-Reactive (Nonreactive)
[2023-04-09] MEDS: Lactated Ringers 1,000 ML 100 ML IV (11:26)
[2023-04-09 11:36] LABS: Hepatitis B Surface Antibody Reactive; Hepatitis B Surface Antigen Non-Reactive (Nonreactive)
[2023-04-09] MEDS: Acyclovir 200 MG Capsule 400 MG PO ×2 (11:59→22:13)
[2023-04-09] MEDS: Mesalamine 1.2 GM Tablet 2.4 GM PO (16:34)
[2023-04-09] MEDS: 0.9% Saline Lock 10 ML Syringe IV (20:15)
[2023-04-09] MEDS: Enoxaparin 40 MG/0.4 ML Syringe SC (20:16)
[2023-04-10 00:05] VITALS: BP 98/74; PULSE 80; RESP 15; TEMP 36.6; O2SAT 97
[2023-04-10] MEDS: Acetaminophen 500 MG Tablet 1000 MG PO ×2 (00:08→06:02)
[2023-04-10] MEDS: Ketorolac 30 MG/ML Syringe IV (01:46)
[2023-04-10] MEDS: 0.9% Saline Lock 10 ML Syringe IV (01:46)
[2023-04-10 05:35] VITALS: BP 108/60; PULSE 79; RESP 16; TEMP 36.4; O2SAT 97
[2023-04-10 06:07] LABS: Hematocrit 26.4 % (37-47); Hemoglobin 8.5 g/dL (12.0-15.0); Mean Corp Hgb Conc 32.2 g/dL (32-36); Mean Corpuscular Hgb 27.9 pg (27.0-32.0); Mean Corpuscular Volume 86.6 fL (81-99); Mean Platelet Vol. 10.9 fl (6.2-12.0); Platelet Count 216 K/mm3 (150-450); RBC Distribution Width CV 13.6 % (11.6-14.6); RBC Distribution Width SD 42.8 fl (35.1-43.9); Red Blood Count 3.05 M/mm3 (4.2-5.4); White Blood Count 19.2 K/mm3 (4.4-11.0)
[2023-04-10 07:08] LABS: Hepatitis B Core Ab Total Negative (Negative)
--- NOTE | 2023-04-10 09:01 | DCINST_ITS ---
Discharge Instructions Diet Discharge Diet: No restrictions Activity Discharge Activity: Return to Normal Activity, May Drive, May Shower and - (No tub baths for 2 weeks) May resume sexual activity in: 4-6 weeks Lifting Restrictions: No lifting over 25 pounds for 2 to 3 weeks Dressing / Incision Call your doctor if your incision/area has: Continuous Slow Oozing and Foul Smelling Discharge Call your doctor if you observe: Fever of 101 or Higher, Shortness of breath and Chest pain Follow Up Care Please Follow Up With: Prabhu Campbell MD When: 2 weeks postoperatively Test Results: Test results from this visit will be discussed in further detail at your follow- up appointment, if applicable. Discharge Plan Admission Admit Date/Time: 04/09/23 05:00 Primary Reason for Your Visit: section Attending Provider: Mirta Campbell Primary Care Provider: Anderson Lombardi Discharge Orders/Prescriptions Prescriptions: New oxycodone 5 mg Tablet 5 mg PO Q6H PRN PRN (Reason: Pain Score 4-10) 4 Days Qty: 14 0RF Continued PNV cmb#95-ferrous fumarate-FA 1 EACH tablet 1 ea PO DAILY valacyclovir [Valtrex] 1 gram Tablet 1,000 mg PO DAILY famotidine [Pepcid] 20 mg Tablet PO DAILY PRN (Reason: gerd) mesalamine 1.2 gram tablet,delayed release (DR/EC) 2.4 g PO BID Qty: 360 3RF Rx Instructions: Takes with food Discontinued ursodiol 200 mg Capsule 200 mg PO BID ondansetron 4 mg tablet,disintegrating 4 mg PO TID PRN (Reason: nausea and vomiting) Qty: 21 0RF promethazine 12.5 mg Tablet 12.5 mg PO Q6H PRN (Reason: Nausea) Referrals / Follow Up: Anderson Lombardi MD [Primary Care Provider] - Disposition Disposition (needs filled in before D/C Order can be placed): Home, Self Care
[2023-04-10] MEDS: Ibuprofen 600 MG Tablet PO (09:02)
[2023-04-10] MEDS: Senna/Docusate Sodium 1 Tablet PO (09:02)
--- NOTE | 2023-04-10 09:03 | PCM.PN.OB ---
Subjective Subjective No overnight complaints. Pain well controlled Objective Data Objective Data Vital Signs: Vital Signs Temp Pulse Resp BP Pulse Ox O2 Del Method 97.6 F L 79 16 108/60 97 Room Air 04/10/23 05:35 04/10/23 05:35 04/10/23 05:35 04/10/23 05:35 04/10/23 05:35 04/10/23 05:35 Oxygen Delivery Method Room Air Weight: 191 lb 9.307 oz Body Mass Index (BMI) 30.9 Intake & Output: Intake and Output for Last 24 Hours 04/08/23 04/09/23 04/10/23 23:59 23:59 23:59 Intake Total 2358.33 / 2358.33 Output Total 1700 / 1700 Balance 658.33 / 658.33 Lab / Micro Data Result Diagrams: 04/10/23 05:50 Labs: Laboratory Results - last 24 hr 04/09/23 05:45: Hepatitis C Antibody Non-Reactive, HIV 1&2 Antibody Non-Reactive 04/09/23 05:45: Hep B Core Total Ab Negative 04/09/23 05:45: Hep Bs Antigen Non-Reactive, Hep Bs Antibody Reactive 04/10/23 05:50: WBC 19.2 H, RBC 3.05 L, Hgb 8.5 L, Hct 26.4 L, MCV 86.6, MCH 27.9, MCHC 32.2, RDW Std Deviation 42.8, RDW Coeff of [place] 13.6, Plt Count 216, MPV 10.9 Physical Exam Const alert, oriented x3, no apparent distress, average body habitus, healthy appearing and well nourished HEENT normocephalic and moist oral mucous membranes Eyes PERRL Neck full ROM Resp normal respiratory effort, no retractions and no use of accessory muscles GI GI Narrative: Soft, nontender, bandage clean dry and intact Extremity normal to inspection and full ROM Neuro moves all extremities and no focal motor deficits Psych mental status grossly normal, affect normal, speech normal and activity/motor behavior normal Assessment & Plan (1) delivery delivered: PLAN: Postop day 1 status post repeat section. Pain well controlled. Breast-feeding. Okay to discharge home today if okay with dispatch specialist. Educated patient on postoperative recovery and expectations discussed follow-up and incision care. Patient and partner state understanding
[2023-04-10 09:05] VITALS: BP 103/74; PULSE 79; RESP 16; TEMP 36.5; O2SAT 98
== END 2023-04-10 12:10 | disposition home or self-care (01) | DRG 787 ==
PROVIDERS: Admitting Provider Student in an Organized Health Care Education/Training Program; PCP Family Medicine; Referring Provider Student in an Organized Health Care Education/Training Program; Visit Provider Student in an Organized Health Care Education/Training Program
PROC: 10D00Z1 Extraction of Products of Conception, Low, Open Approach (ICD-10-PCS; CPT 59514; principal; 2023-04-09 06:55)
DX: O34.211 Maternal care for low transverse scar from previous cesarean delivery (principal); K51.90 Ulcerative colitis, unspecified, without complications; O26.62 Liver and biliary tract disorders in childbirth; K76.89 Other specified diseases of liver; E78.79 Other disorders of bile acid and cholesterol metabolism; Z37.0 Single live birth; O99.62 Diseases of the digestive system complicating childbirth; O35.8XX0 Maternal care for other (suspected) fetal abnormality and damage, not applicable or unspecified; O99.02 Anemia complicating childbirth; Z3A.37 37 weeks gestation of pregnancy; Z87.59 Personal history of other complications of pregnancy, childbirth and the puerperium
CPT/HCPCS: 59025; 59050; 85025; 85027; 86703; 86704; 86706; 86780; 86803; 86850; 86900; 86901; 87340; 99221; J7120; A4216; G0378; J2405

== ENCOUNTER → 2023-06-10 | Outpatient (CLI) | payer OTHER, SELFPAY ==
[2023-06-10 15:27] LABS: Erythrocyte Sedimentation Rate < 1 mm/hr (0-30)
[2023-06-10 15:41] LABS: CRP < 2.90 mg/L (0.0-3.0)
[2023-06-14 05:07] LABS: Beef <0.10 kU/L (Class 0); Chocolate <0.10 kU/L (Class 0); Clam <0.10 kU/L (Class 0); Codfish <0.10 kU/L (Class 0); Corn <0.10 kU/L (Class 0); Egg, White <0.10 kU/L (Class 0); Egg, Whole <0.10 kU/L (Class 0); Milk (Cow) <0.10 kU/L (Class 0); Peanut <0.10 kU/L (Class 0); Pork <0.10 kU/L (Class 0); SCALLOP <0.10 kU/L (Class 0); SESAME SEED <0.10 kU/L (Class 0); Shrimp <0.10 kU/L (Class 0); Soybean <0.10 kU/L (Class 0); Walnut, (Food) <0.10 kU/L (Class 0); Wheat <0.10 kU/L (Class 0)
== END | disposition home or self-care (01) ==
LOC: LAB 14:07
PROVIDERS: PCP Family Medicine; Referring Provider Internal Medicine Gastroenterology; Visit Provider Internal Medicine Gastroenterology
DX: K51.90 Ulcerative colitis, unspecified, without complications (principal); K21.9 Gastro-esophageal reflux disease without esophagitis
CPT/HCPCS: 36415; 85652; 86003; 86005; 86140

== ENCOUNTER 2023-07-23 05:30 | Day surgery (SDC) | payer OTHER, SELFPAY ==
[2023-07-23] MEDS: Lactated Ringers 1,000 ML 15 ML IV (05:45)
[2023-07-23 06:02] VITALS: BP 110/66; PULSE 70; RESP 17; TEMP 36.4; O2SAT 99; BMI 25.6
[2023-07-23 06:07] LABS: Internal QC Validated? YES +Cl - CLEAR BKGD; Pregnancy, Urine Negative Negative
--- NOTE | 2023-07-23 06:30 | HP.PCM_ITS ---
History and Physical Date of Admission: 07/23/23 REGULO CAST, is a 32 F who presents to the office today for a follow up. FH includes father with celiac disease, maternal aunt and grandfather with colon cancer, grandmother with Crohn?s disease.? ? [facility] established for UC. Managed with Mesalamine 2.4g QD with increase to four tabs QD with flare. ? FH includes father with celiac disease, maternal aunt and grandfather with colon cancer, grandmother with Crohn?s disease.? Colonoscopy 2.?transverse colon with erosion and mild increase in eosinophils; descending colon found patchy active colitis with mucosal erosion and increased eosinophils without dysplasia.? Colonoscopy 06.18.?terminal ileum to have congestion and edema with lymphoid aggregates; mild active colitis with focal ulcer in the cecum characterized by mild patchy ulcerations. Remaining biopsies without acute or chronic disease.? Colonoscopy 8..?focal active colitis with erosion in cecum characterized by mild erythema, ulcerations and granularity; mucosal congestion in left colon; remaining biopsies without acute or chronic disease.? Colonoscopy performed 11.03.21?sigmoid colon to have mild erythema, granularity and loss of vascular pattern; external hemorrhoids; prominent lymphoid aggregates in the terminal ileum; chronic colitis in sigmoid colon; no active colitis in right, transverse, or left colons.? *[facility] established 02.14.22. Continues with mesalamine 2.4g QD with PRN increase to 4.8g QD for a couple of days and this resolves symptoms; Last major flare was 2016/2017. Recalls diagnosis being in 2013 following presentation of blood and mucous in her stool.? Reports internal and external hemorrhoids that requires her to be diligent with cleanliness. She has had banding prior and the first time it was effective, fo llowing this they banding was not effective. ? Has one child at home who will be one soon and is currently and is currently in her first trimester. Ten week ultrasound will be done tomorrow.?Biochemical?ESR, CBC, CMP, LDH, LFT without pertinent abnormality.? CRP H9.79, p-ANCA H1:320?Stool testing ?lactoferrin, calprotectin WNL? OV 05.04.22 Continues to be doing well with use of mesalamine.? Biochemical?CRP WNL? Apt 07.27.22, no-show.? Reports that she has been having a feeling of something being stuck in her throat constantly. States that she recently had a baby and had horrible heartburn during her and continues to have some heartburn. She continues to take Mesalamine 1.2 gm BID and feels great and feels her ulcerative colitis symptoms are controlled. ROS Const Constitutional: No fatigue, fever(s), frequent falls, headache(s) or weight change ENT ENT: No headache(s) or difficulty swallowing Cardio Cardiology: No leg pain with exertion Gastro GI: Positive for heartburn; No abdominal pain, bloating, change in bowel habits, constipation, diarrhea, difficulty swallowing, Vomiting blood/hematemesis, Blood in stool, nausea/dyspepsia or vomiting Musc Musculoskeletal: No abnormal gait, joint pain, back pain, joint swelling, muscle cramps, muscle weakness, numbness, stiffness, tingling, Arthritis, sciatica, leg pain at night or leg pain with exertion Skin Skin: No dry skin, lesions, itchy eyes or rash Neuro Neurology: No abnormal gait, dizziness, frequent falls, headache(s), numbness, tingling, tremor(s), Increased tone in limbs, paralysis or seizures Psych Psychiatric: No anxiety, No depression, No paranoia, No Behavioral Problems, No Compulsive Behavior, No hyperactivity, No inattentiveness, No obsessions/compulsions, No Temper Tantrums and No suicidal ideation Endo Endocrine: No fatigue or weight change Aller/Imm Allergy/Immunologic: No itchy eyes Kwabena/Lymp Hematologic/Lymphatic: No easy bleeding or easy bruising Exam Const General: cooperative and comfortable Nutritional Appearance: average body habitus and well nourished [facility] Head: normal to inspection Ears: hearing grossly normal bilaterally Nose: external nose normal Face and sinus: normal facial exam Mouth: oral mucosae normal Throat: posterior oropharynx normal Eyes General: appearance normal, both eyes and all related structures Neck Neck: normal visual inspection Chest Chest palpation & inspection: normal inspection of the chest and normal pa lpation of entire chest wall Resp Effort & Inspection: normal respiratory effort Auscultation: Bilateral: Clear to Auscultation Cardio Palpation: normal PMI Rate: regular rate Rhythm: regular rhythm GI Inspection: normal to inspection Auscultation: normal bowel sounds Percussion: normal to percussion Palpation: no hepatosplenomegaly Skin General: no rashes or lesions noted Neuro General: patient alert Extrem General: normal to inspection Psych Affect: normal affect Quality Reporting Tobacco Screening ([facility] 138) Smoking Status: Never smoker Assessment and Plan Assessment and Plan (1) Ulcerative colitis: Status: Acute Qualifiers: Ulcerative colitis location: unspecified ulcerative colitis location Digestive disease complication type: without complication Qualified Code(s): K51.90 - Ulcerative colitis, unspecified, without complications Plan: Her CRP is mildly elevated. Her fecal calprotectin was normal. She is not having any problems with diarrhea or bleeding. We will recheck her CRP. I would not make any changes in her medication regimen at this time as she is actually doing very well. It has been 2 years since she has undergone a colonoscopy for surveillance of ulcerative colitis. We will schedule her for a surveillance colonoscopy. She was explained alternatives, risk, benefits including not withstanding bleeding, infection, sepsis, perforation, need for emergent and . She will have an ASA of 2. (2) GERD (gastroesophageal reflux disease): Status: Acute Qualifiers: Esophagitis presence: with esophagitis Esophagitis bleeding: without hemorrhage Qualified Code(s): K21.00 - Gastro-esophageal reflux disease with esophagitis, without bleeding Plan: She is actually having symptoms of esophageal dysphagia. Since she is undergoing a colonoscopy we have suggested she undergo an upper endoscopy to evaluate upper GI tract. In the interim we will put her on pantoprazole 20 mg p.o. twice daily. I have examined the patient and the H&P has been reviewed. There are no clinical changes since date of exam.
--- NOTE | 2023-07-23 06:30 | EGD_PTH ---
PATIENT: REGULO CAST LOC: EN U#:[id number] AGE/SX: 32/F ROOM: RE07/23/[address]: Dr. Jl Peterson DO : 1990 BED: DIS: 07/23/2023 SPEC #: [id number] RECD: 07/23/23 11:24 STATUS: HELIO REBess #: [id number] AMILCAR: 07/23/23 06:[address]: Jl Peterson DEPT: SURGICAL PATHOLOGY RECD BY: Pepper Santiago ENTERED: 07/23/23 12:17 SP TYPE: EGD BIOPSY OT DR: Dr. Anderson Lombardi MD Tissues: A - Esophagus, NOS B - Esophagus, NOS C - Ileum, NOS D - Cecum, NOS E - Ascending colon F - Transverse colon G - Descending colon H - Sigmoid colon biopsy I - Rectum, NOS Procedures: Special Stain Group II Surgery Specimen Level IV Alcian Blue/PAS (control) HEADER OPERATION: Colonoscopy with biopsies, EGD with biopsies PRE-OP DIAGNOSIS: Ulcerative colitis, GERD TISSUE SUBMITTED: A - Distal esophagus biopsy, B - Random esophagus biopsy, C - Termina ileum biopsies, D - Cecum biopsies, E - Ascending colon biopsy, F - Transverse colon biopsy, G - Descending colon biopsy, H - Sigmoid colon biopsy, I - Rectum biopsy MICROSCOPIC DIAGNOSIS A. Distal esophagus, biopsy: Fragments of gastroesophageal mucosa with moderate chronic inflammation and changes consistent with gastroesophageal reflux disease. Intestinal metaplasia (goblet cell metaplasia) not identified. Focal changes consistent with eosinophilic esophagitis. See comment. B. Esophagus, random biopsy: Fragments of gastroesophageal mucosa with changes suggestive of esophagitis. Chronic inflammation. Intestinal metaplasia (goblet cell metaplasia) not identified. See comment. C. Terminal ileum, biopsy: Fragments of small intestinal mucosa with ulceration and acute inflammation and prominent lymphoid aggregate formation. Negative for dysplasia. D. Cecum, biopsy: Mild chronic active colitis. See microscopic description and comment. E. Ascending colon, biopsy: Mild chronic active colitis. See microscopic description and comment. F. Transverse colon, biopsy: Fragments of colonic mucosa with minimal glandular distortion, negative for active inflammation. G. Descending colon, biopsy: Fragments of colonic mucosa with minimal glandular distortion, negative for active inflammation. H. Sigmoid colon, biopsy: Fragments of colonic mucosa with minimal glandular distortion, negative for active inflammation. Fragments of fecal material. I. Rectum, biopsy: Fragments of colonic mucosa with minimal glandular distortion, negative for active inflammation. SJ:rg 07/24/2023 COMMENT A. Alcian blue/PAS stain with matched control is used in the evaluation of the specimen. Increased number of eosinophils (~15 per high power field) are noted consistent with eosinophilic esophagitis. B. Alcian blue/PAS stain with matched control is used in the evaluation of the specimen. Focal mild Increased number of eosinophils (~ 10per high power field) are noted suggestive of eosinophilic esophagitis. MICROSCOPIC DESCRIPTION Slides are reviewed. D & E. The specimen shows fragments of colonic mucosa with mild glandular distortion, acute and chronic inflammatory cell infiltrate in the lamina propria, mild cryptitis, crypt abscess and lymphoid aggregate formation. Granulomas are not seen. No evidence of dysplasia. GROSS DESCRIPTION A - Received in fixative is one container labeled with the patient's name and designated distal esophagus biopsy. The specimen consists of two irregular fragments of light day soft tissue that in aggregate measure 0.6 x 0.3 x 0.1 cm. The specimen is totally submitted in one cassette. B - Received in fixative is one container labeled with the patient's name and designated random esophagus biopsy. The specimen consists of multiple irregular fragments of light day soft tissue that in aggregate measure 1.5 x 0.4 x 0.1 cm. The specimen is totally submitted in one cassette. C - Received in fixative is one container labeled with the patient's name and designated terminal ileum biopsy. The specimen consists of multiple irregular fragments of light day soft tissue that in aggregate measure 1.0 x 0.3 x 0.1 cm. The specimen is totally submitted in one cassette. D - Received in fixative is one container labeled with the patient's name and designated cecum biopsy. The specimen consists of multiple irregular fragments of light day soft tissue that in aggregate measure 1.5 x 0.5 x 0.1 cm. The specimen is totally submitted in one cassette. E - Received in fixative is one container labeled with the patient's name and designated ascending colon biopsy. The specimen consists of two irregular fragments of light day soft tissue that in aggregate measure 0.5 x 0.4 x 0.1 cm. The specimen is totally submitted in one cassette. F - Received in fixative is one container labeled with the patient's name and designated transverse colon biopsy. The specimen consists of two irregular fragments of light day soft tissue that in aggregate measure 0.6 x 0.3 x 0.1 cm. The specimen is totally submitted in one cassette. G - Received in fixative is one container labeled with the patient's name and designated descending colon biopsy. The specimen consists of multiple irregular fragments of light day soft tissue that in aggregate measure 1.0 x 0.3 x 0.1 cm. The specimen is totally submitted in one cassette. H - Received in fixative is one container labeled with the patient's name and designated sigmoid colon biopsy. The specimen consists of two irregular fragments of light day soft tissue that in aggregate measure 0.4 x 0.2 x 0.1 cm. Multiple fragments of fecal material are also noted. The specimen is totally submitted in one cassette. I - Received in fixative is one container labeled with the patient's name and designated rectum biopsy. The specimen consists of two irregular fragments of light day soft tissue that in aggregate measure 0.5 x 0.2 x 0.1 cm. The specimen is totally submitted in one cassette. / SJ:rg 07/23/2023 TC:2 CPT: 89659 x9, 04858 x2
[2023-07-23 07:05] VITALS: BP 105/68; BP 110/60; PULSE 69; RESP 16; TEMP 36.4; O2SAT 98
[2023-07-23 07:10] VITALS: BP 110/60; BP 110/69; PULSE 75; RESP 16; O2SAT 100
--- NOTE | 2023-07-23 07:12 | OP.CCLET_ITS ---
07/23/2023 Anderson Lombardi Re : Upper GI endoscopy procedure for Sue Hayden Dear Maria C This procedure was performed on Sunday, July 23, 2023. My impressions and recommendations are as follows: Impressions : - Esophageal mucosal changes consistent with eosinophilic esophagitis. - LA Grade A reflux esophagitis with no bleeding. Biopsied. - Normal stomach. - Biopsies were taken with a cold forceps for evaluation of eosinophilic esophagitis. Recommendations : - Discharge patient to home. - Resume previous diet. - Continue present medications. - Await pathology results. My findings are described in the full procedure note, which is enclosed. If I can be of further assistance, please feel free to contact me at . Sincerely, Jl Peterson, 07/23/2023 7:11:38 AM This report has been signed electronically.
--- NOTE | 2023-07-23 07:12 | OP.EGD_ITS ---
Patient Name: Sue Hayden Procedure Date: 07/23/2023 6:24 AM Date of : 1990 Age: 32 Procedure: Upper GI endoscopy Indications: Dysphagia, Heartburn Providers: DO Chris Finnegan MD: Anderson Lombardi Medicines: Monitored Anesthesia Care Patient Profile: This is a 32 year old female. Refer to note in patient chart for documentation of history and physical. Patient has symptoms of acute heartburn. Complications: No immediate complications. Procedure: Pre-Anesthesia Assessment: - Prior to the procedure, a History and Physical was performed, and patient medications and allergies were reviewed. The risks and benefits of the procedure and the sedation options and risks were discussed with the patient. All questions were answered and informed consent was obtained. Patient identification and proposed procedure were verified by the physician. Mental Status Examination: normal. Prophylactic Antibiotics: The patient does not require prophylactic antibiotics. Prior Anticoagulants: The patient has taken no anticoagulant or antiplatelet agents. After reviewing the risks and benefits, the patient was deemed in satisfactory condition to undergo the procedure. The anesthesia plan was to use monitored anesthesia care (MAC). Immediately prior to administration of medications, the patient was re-assessed for adequacy to receive sedatives. The heart rate, respiratory rate, oxygen saturations, blood pressure, adequacy of pulmonary ventilation, and response to care were monitored throughout the procedure. The physical status of the patient was re-assessed after the procedure. After obtaining informed consent, the endoscope was passed under direct vision. Throughout the procedure, the patient's blood pressure, pulse, and oxygen saturations were monitored continuously. The Colonoscope was introduced through the mouth, and advanced to the second part of duodenum. The upper GI endoscopy was accomplished without difficulty. The patient tolerated the procedure well. Scope In: 6:39:12 AM Scope Out: 6:44:13 AM Total Procedure Duration Time 0 hours 5 minutes 1 second Findings: Mucosal changes including ringed esophagus, longitudinal furrows and small-caliber esophagus were found in the middle third of the esophagus and in the lower third of the esophagus. Biopsies were obtained from the proximal and distal esophagus with cold forceps for histology of suspected eosinophilic esophagitis. Verification of patient identification for the specimen was done. Estimated blood loss was minimal. LA Grade A (one or more mucosal breaks less than 5 mm, not extending between tops of 2 mucosal folds) esophagitis with no bleeding was found 36 to 37 cm from the incisors. Biopsies were taken with a cold forceps for histology. Verification of patient identification for the specimen was done. Estimated blood loss was minimal. The entire examined stomach was normal. The exam of the duodenum was otherwise normal. Impression: - Esophageal mucosal changes consistent with eosinophilic esophagitis. - LA Grade A reflux esophagitis with no bleeding. Biopsied. - Normal stomach. - Biopsies were taken with a cold forceps for evaluation of eosinophilic esophagitis. Recommendation: - Discharge patient to home. - Resume previous diet. - Continue present medications. - Await pathology results. Procedure Code(s): --- Professional --- 17906, Esophagogastroduodenoscopy, flexible, transoral; with biopsy, single or multiple CPT copyright 2021 [employer]. All rights reserved. The codes documented in this report are preliminary and upon manager business operations review may be revised to meet current compliance requirements. Jl Peterson DO 07/23/2023 7:11:38 AM This report has been signed electronically. Number of Addenda: 0 Note Initiated On: 07/23/2023 6:24 AM
[2023-07-23 07:15] VITALS: BP 104/77; BP 110/60; PULSE 67; RESP 16; O2SAT 100
--- NOTE | 2023-07-23 07:15 | OP.COLON_ITS ---
Patient Name: Sue Hayden Procedure Date: 07/23/2023 6:44 AM Date of : 1990 Age: 32 Procedure: Colonoscopy Indications: Ulcerative colitis Providers: Jl Peterson DO Referring MD: Anderson Lombardi Medicines: Monitored Anesthesia Care Patient Profile: This is a 32 year old female. Refer to note in patient chart for documentation of history and physical. Patient has symptoms of acute heartburn. Last Colonoscopy: 1 year ago. Complications: No immediate complications. Procedure: Pre-Anesthesia Assessment: - Prior to the procedure, a History and Physical was performed, and patient medications and allergies were reviewed. The risks and benefits of the procedure and the sedation options and risks were discussed with the patient. All questions were answered and informed consent was obtained. Patient identification and proposed procedure were verified by the physician. Mental Status Examination: normal. Prophylactic Antibiotics: The patient does not require prophylactic antibiotics. Prior Anticoagulants: The patient has taken no anticoagulant or antiplatelet agents. After reviewing the risks and benefits, the patient was deemed in satisfactory condition to undergo the procedure. The anesthesia plan was to use monitored anesthesia care (MAC). Immediately prior to administration of medications, the patient was re-assessed for adequacy to receive sedatives. The heart rate, respiratory rate, oxygen saturations, blood pressure, adequacy of pulmonary ventilation, and response to care were monitored throughout the procedure. The physical status of the patient was re-assessed after the procedure. After I obtained informed consent, the scope was passed under direct vision. Throughout the procedure, the patient's blood pressure, pulse, and oxygen saturations were monitored continuously. The Colonoscope was introduced through the anus and advanced to the cecum, identified by appendiceal orifice and ileocecal valve. The colonoscopy was performed without difficulty. The patient tolerated the procedure well. The quality of the bowel preparation was good. The terminal ileum, ileocecal valve, appendiceal orifice, and rectum were photographed. Scope In: 6:45:57 AM Scope Withdrawal Time 0 hours 9 minutes 9 seconds Scope Out: 6:59:36 AM Total Procedure Duration Time 0 hours 13 minutes 39 seconds Findings: The perianal and digital rectal examinations were normal. Inflammation was found in a continuous and circumferential pattern from the hepatic flexure to the terminal ileum. This was graded as Gonzales Score 2 (moderate, with marked erythema, absent vascular pattern, friability, erosions), and when compared to the previous examination, the findings are new. Biopsies were taken with a cold forceps for histology. Verification of patient identification for the specimen was done. Estimated blood loss was minimal. Patchy mild inflammation was found in the terminal ileum. Biopsies were taken with a cold forceps for histology. Verification of patient identification for the specimen was done. Estimated blood loss was minimal. Impression: - Moderately active (Gonzales Score 2) ulcerative colitis, new since the last examination. Biopsied. - Mild inflammation was found in the ileum secondary to ileitis. Biopsied. Recommendation: - Discharge patient to home. - Resume previous diet. - Continue present medications. - Await pathology results. - Repeat colonoscopy in 1 year. Procedure Code(s): --- Professional --- 29220, Colonoscopy, flexible; with biopsy, single or multiple CPT copyright 2021 [employer]. All rights reserved. The codes documented in this report are preliminary and upon vac press operator review may be revised to meet current compliance requirements. Jl Peterson DO 07/23/2023 7:15:26 AM This report has been signed electronically. Number of Addenda: 0 Note Initiated On: 07/23/2023 6:44 AM
--- NOTE | 2023-07-23 07:15 | OP.CCLET_ITS ---
07/23/2023 Anderson Lombardi Re : Colonoscopy procedure for Sue Hayden Dear Maria C This procedure was performed on Sunday, July 23, 2023. My impressions and recommendations are as follows: Impressions : - Moderately active (Gonzales Score 2) ulcerative colitis, new since the last examination. Biopsied. - Mild inflammation was found in the ileum secondary to ileitis. Biopsied. Recommendations : - Discharge patient to home. - Resume previous diet. - Continue present medications. - Await pathology results. - Repeat colonoscopy in 1 year. My findings are described in the full procedure note, which is enclosed. If I can be of further assistance, please feel free to contact me at . Sincerely, Jl Peterson, 07/23/2023 7:15:26 AM This report has been signed electronically.
[2023-07-23 07:19] VITALS: BP 102/65; BP 110/60; PULSE 67; RESP 16; TEMP 36.4; O2SAT 100
[2023-07-23 07:21] VITALS: BP 110/60
== END 2023-07-23 07:54 | disposition home or self-care (01) ==
LOC: EN 05:30 → AC 05:31
PROVIDERS: Anesthesiology; PCP Family Medicine; Referring Provider Family Medicine; Visit Provider Internal Medicine Gastroenterology
PROC: 0DJD8ZZ Inspection of Lower Intestinal Tract, Via Natural or Artificial Opening Endoscopic (ICD-10-PCS; CPT 45378; principal; 2023-07-23 06:25)
DX: K51.90 Ulcerative colitis, unspecified, without complications (principal); R13.10 Dysphagia, unspecified; K20.0 Eosinophilic esophagitis
CPT/HCPCS: 45380; 43239; 81025; 88305; 88313; J7120; J2405

== ENCOUNTER → 2023-10-24 | Outpatient (CLI) | payer OTHER, SELFPAY ==
[2023-10-24 09:28] LABS: Erythrocyte Sedimentation Rate 1 mm/hr (0-30)
[2023-10-24 09:40] LABS: CRP < 2.90 mg/L (0.0-3.0)
[2023-10-28 22:06] LABS: Calprotectin, Stool 53 ug/g (0-120)
== END | disposition home or self-care (01) ==
LOC: LAB 08:37
PROVIDERS: PCP Family Medicine; Referring Provider Internal Medicine Gastroenterology; Visit Provider Internal Medicine Gastroenterology
DX: K51.90 Ulcerative colitis, unspecified, without complications (principal)
CPT/HCPCS: 36415; 83630; 83993; 85652; 86140

== ENCOUNTER 2025-01-25 09:30 | Inpatient (IN) | payer OTHER, SELFPAY ==
[2025-01-25] VITALS (15 sets, daily range): BP systolic 104–132; BP diastolic 69–83; PULSE 63–87; RESP 11–20; TEMP 35.7–36.9; O2SAT 97–100; BMI 30.8
[2025-01-25] MEDS: Lactated Ringers 1,000 ML 999 ML IV (10:20)
[2025-01-25] MEDS: Acetaminophen 500 MG Tablet 1000 MG PO ×3 (10:27→22:39)
[2025-01-25 10:44] LABS: Absolute Lymphocyte Count 2.01 X10^3/uL (0.83-4.51); Absolute Neutrophil Count 7.4 X10^3/uL (2.0-7.7); Basophil# 0.04 X10^3/uL; Basophil% 0.4 % (0-1); Eosinophil# 0.16 X10^3/uL; Eosinophils% 1.6 % (0-5); Hematocrit 31.8 % (37-47); Hemoglobin 10.7 g/dL (12.0-15.0); Lymphocyte # 2.01 X10^3/ul (0.83-4.51); Lymphocyte % 19.6 % (19-41); Mean Corp Hgb Conc 33.6 g/dL (32-36); Mean Corpuscular Hgb 28.5 pg (27.0-32.0); Mean Corpuscular Volume 84.6 fL (81-99); Mean Platelet Vol. 10.6 fl (6.2-12.0); Monocyte# 0.51 X10^3/uL; NRBC Flagged by Analyzer 0 % (0-5); Neutrophil # 7.44 X10^3/uL (2.7-7.7); Neutrophil % 72.3 % (47-70); Platelet Count 167 K/mm3 (150-450); RBC Distribution Width CV 15.6 % (11.6-14.6); RBC Distribution Width SD 47.4 fl (35.1-43.9); Red Blood Count 3.76 M/mm3 (4.2-5.4); White Blood Count 10.3 K/mm3 (4.4-11.0)
[2025-01-25 11:32] LABS: Syphilis Antibodies Nonreactive (Nonreactive)
[2025-01-25] MEDS: Sodium Citrate/Citric Acid 30 ML UDC PO (11:53)
--- NOTE | 2025-01-25 12:02 | PCM.HP.BLA ---
History and Physical Date of Admission: 01/25/25 Expand All Collapse All OBSTETRICS HISTORY AND PHYSICAL NAME: Sue Hayden SERVICE DATE: January 18, 2025 SERVICE TIME: 5:19 PM ASSESSMENT & PLAN: 34 year old EGA:37w2d. Plan for delivery in <30 days. POST DELIVERY CONTRACEPTION: Discussed post-delivery contraception options. Patient received written information about post-delivery contraception options. Patient desires post-delivery contraception: considering vasectomy. Patient no longer desires sterilization chosen, informed consent obtained. SUBJECTIVE: CHIEF COMPLAINT: Scheduled section HISTORY OF THE PRESENT ILLNESS: The patient is a 34 year old female, , who is at 37w2d with an ROXANNE of 02/06/2025, by Last Menstrual Period dating method. Patient has Good movement. Denies vaginal bleeding., Denies contractions., Denies leaking of fluid. . Patient is GBS Negative. Her has been complicated by the following issues: Active Non-Hospital Problems Diagnosis Date Noted ? Cholestasis during 01/18/2025 ? Maternal iron deficiency anemia complicating , third trimester 12/25/2024 ? 26 weeks gestation of 12/17/2024 ? Heartburn during in second trimester 10/08/2024 Overview Note: 10/09/24- No relief from Pepcid. Rx for Protonix 20 mg XR sent . Hazel Feliciano APRN.CNM ? control counseling 08/28/2024 Overview Note: 01/18/25 Patient no longer desires sterilization. SW 08/28/24 Pt reports significant adhesive disease at time of last section. Operative report reviewed and adhesive disease noted of peritoneum to fascia. Patient states if she has significant adhesive disease at time of repeat section, she would like tubal sterilization. Discussed r/b/a tubal sterilization and risk of regret. SW ? Rubella non-immune status, antepartum 07/15/2024 Overview Note: Consider MMR . 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 History of section 07/06/2024 Overview Note: 07/06/24 Repeat C/S. SW ? Supervision of high risk in first trimester 06/15/2024 Overview Note: Care Checklist Vaccines: ? Flu vaccine ? declined ? RSV vaccine 32 0/7 - 36 6/7 (Jul - Dec) ? declined ? COVID vaccine ? declined ? TDaP 27-36 ? declined First trimester: ? Dating US ? 1st tri labs ? Pap smear ? Carrier screening ? declined ? NIPT screening ? declined ? First trimester anatomy scan ? declined ? universal ASA ordered (start 12w-16w) ? declined ? M Power Consult ? not indicated ? declined Second trimester: ? AFP ? declined ? Anatomy scan ? Mode of Delivery - ? Feeding - ? Pump ordered ? Diabetes screen ? CBC, RPR Third trimester (28-30 weeks): ? Consent ? Contraception - ? Book Illustrator Third trimester (36-40 weeks): ? GBS negative ? Presentation - ? Scheduled ? yes - Hibiclens, pre-op instructions, CBC, T&S ordered ? no ? H&P ? Eosinophilic esophagitis 11/20/2023 ? Recurrent cold sores 09/01/2021 Overview Note: 01/14/25 Discussed starting Valtrex. SW ? Ulcerative colitis without complications (HCC) 12/25/2019 Overview Note: Follows with Dr. Vora in [place] ? Skin tag 06/20/2017 Overview Note: Added automatically from request for surgery [id number] ANESTHESIA COMPLICATIONS: None HISTORY REVIEW PAST MEDICAL HISTORY PAST MEDICAL HISTORY Diagnosis Date ? Eosinophilic esophagitis ? GERD (gastroesophageal reflux disease) 2015 ? Ulcerative colitis (HCC) 2015 PAST SURGICAL HISTORY PAST SURGICAL HISTORY Procedure Laterality Date ? SECTION HX 03/06/21, 04/09/23 ? COLONOSCOPY SCREENING 11/03/2021 ? D&C, DIAG AND/OR THERAPEUTIC 2021 ? EXTRACTION ERUPTED TOOTH/EXR 2008 ? INCISE FINGER TENDON SHEATH Right 01/01/2024 Right trigger thumb release ? LASIK Bilateral 2014 FAMILY HISTORY FAMILY HISTORY Problem Relation Age of Onset ? No Known Problems Mother ? No Known Problems Father ? Breast Cancer Maternal Grandmother ? other (Oral Cancer) Maternal Grandfather ? other (lung cancer) Paternal Grandfather ? Breast Cancer Maternal Aunt ? Colon Cancer Maternal Aunt SOCIAL HISTORYExpand by Default Social History Tobacco Use ? Smoking status: Never ? Smokeless tobacco: Never Vaping Use ? Vaping status: Never Used Substance Use Topics ? Alcohol use: Yes Comment: occasional ? Drug use: Never Obstetric History T1 L2 SAB0 IAB1 Ectopic0 Multiple0 Live Births2 Name of Baby 1: Yu Date: 03/06/21 GA: 36w6d Type: , Low Transverse Apgar1: Not recorded Apgar5: Not recorded Living: Living Name of Baby 2: Not recorded Date: 03/09/22 GA: 13w4d Type: MISSED AB Apgar1: Not recorded Apgar5: Not recorded Living: Not recorded Name of Baby 3: Leeann Date: 04/09/23 GA: 37w2d Type: , Low Transverse Apgar1: Not recorded Apgar5: Not recorded Living: Living Name of Baby 4: Not recorded Date: Not recorded GA: Not recorded Type: Not recorded Apgar1: Not recorded Apgar5: Not recorded Living: Not recorded ALLERGIES: ALLERGIES ALLERGIES No Known Allergies PRIOR TO ADMISSION MEDICATIONS: Prior to Admission medications as of 01/18/25 1535 Medication Sig Last Dose Taking amoxicillin (AMOXIL) 875 mg tablet Take 1 tablet by mouth two times a day for 7 days. Yes valACYclovir (VALTREX) 1 gram tablet Take 1 tablet by mouth once daily. Yes ursodiol (ACTIGALL) 300 mg capsule Take 1 capsule by mouth three times a day. Yes ferrous sulfate 325 mg (65 mg iron) tablet Take 1 tablet by mouth every other day. Yes pantoprazole DR (PROTONIX) 40 mg tablet Take 1 tablet by mouth once daily. Yes promethazine (PHENERGAN) 25 mg tablet Take 1 tablet by mouth every 6 hours as needed. Yes valACYclovir (VALTREX) 1 gram tablet Take 2 tablets by mouth every 12 hours. Yes PNV Comb No.59/Iron/FA/DHA (-DHA ORAL) Take by mouth. Yes Mesalamine (LIALDA) 1.2 gram EC tablet Take 1,200 mg by mouth once daily. Take with food. Do not cut tablet. Yes loratadine (CLARITIN) 10 mg tablet Take 10 mg by mouth once daily. Patient not taking: Reported on 11/05/2024 No medication comments found. REVIEW OF SYSTEMS: GENERAL: No weight loss, malaise or fevers. RESPIRATORY: Negative for cough, hemoptysis, wheezing, COPD, dyspnea or shortness of breath CARDIOVASCULAR: Negative for chest pain, leg swelling, hypertension, CHF or palpitations GI: No nausea, vomiting, or diarrhea : No history of dysuria, frequency or incontinence TEXTILE DESIGNER: Negative for abnormal vaginal bleeding, abnormal vaginal discharge SKIN: Negative for lesions, rash, and itching. PSYCH: Negative for sleep disturbance, mood disorder and recent psychosocial stressors. The remainder of the review of systems is negative. OBJECTIVE: SENSITIVE EXAM: Sensitive exam not performed. PHYSICAL EXAM: General: NAD, comfortable HEENT: NC/AT, sclera white Lungs: normal respiratory effort Heart: RR Abdomen: soft, nontender, no masses Uterus: soft Extremities: no edema DTRs: Not assessed Pelvimetry: Not assessed LAST VITALS: BP 128/80 Wt 88.4 kg (194 lb 12.8 oz) LMP 05/02/2024 BMI 32.42 kg/m? Heart Rate: 130 BPM LABS Diagnostic tests reviewed for today's visit: Most recent labs and imaging results. Maternal Results (In Last 9 Months): Hemoglobin (g/dL) Date/Time Value 12/17/2024 0937 10.2 (L) 11/05/2024 0842 10.9 (L) 07/13/2024 0725 12.5 Hematocrit (%) Date/Time Value 12/17/2024 0937 30.9 (L) 11/05/2024 0842 32.9 (L) 07/13/2024 0725 36.8 Platelet Count (k/uL) Date/Time Value 12/17/2024 0937 200 11/05/2024 0842 212 07/13/2024 0725 238 ABO (no units) Date/Time Value 07/13/2024 0725 O Rh(D) (no units) Date/Time Value 07/13/2024 0725 Positive Group B Strep PCR (no units) Date/Time Value 01/12/2025 0931 Negative for Group B Streptococcus by PCR. HBsAg (no units) Date/Time Value 07/13/2024 0725 Negative Hep C Antibody IA (no units) Date/Time Value 07/13/2024 0725 Negative HIV 12 Combo (Ag/Ab) (no units) Date/Time Value 07/13/2024 0725 Nonreactive Neisseria gonorrhoeae RNA (no units) Date/Time Value 06/15/2024 1544 Negative for Neisseria gonorrhoeae by amplification Syphilis Treponemal Screen (no units) Date/Time Value 11/05/2024 0842 Nonreactive Glucose Scrn, Preg (mg/dL) Date/Time Value 11/05/2024 0842 116 Delivery Plan: Delivery Plan includes: , Primary Reason for is repeat and cholestasis, and EFW is 3405 grams on 01/12/25. Discussed r/b/a repeat section. The rationale for the proposed surgery was discussed in addition to risks, benefits, and alternatives. General pre- and post-operative care was reviewed. Questions were answered. After discussion, the patient indicated a desire to proceed with the planned surgery. Assessment & Plan Assessment/Plan (1) 39 weeks gestation of : (2) Previous section:
[2025-01-25] MEDS: Cefazolin 2 GM in 0.9% Normal Saline (100mL Bag) 100 ML IV (12:05)
--- NOTE | 2025-01-25 13:22 | OP.PCM_ITS ---
Problems Associated Problem List Diagnoses (1) Previous section: (2) Ulcerative colitis: (3) Cholestasis during : (4) 38 weeks gestation of : Operative Report (Standard) Operative Information Date of Procedure: 01/25/25 Pre-Operative Diagnosis: 38 week gestation, prior section, cholestasis of Post-Operative Diagnosis: As above Surgery/Procedure Performed: RLCTS via pfannenstiel incision case management rn: Yes Developer Prover Mechanical: Dakota HANSEN Tasks completed by first front ventilator: Closing and Retracting Type of Anesthesia: Spinal RN Documented Start/Stop Times: Operation Date: 01/25/25 12:00 <No data on this case meets the specified criteria> Procedure Start Time: 12:25 Procedure Stop Time: 13:24 Select all DRAINS/GRAFTS/IMPLANTS that apply: None Special Medications: None Estimated Blood Loss: 800 mL Fluids Replaced: 300 mL Specimen collected: No Description of surgery: The patient was taken to the operating room where spinal anesthesia was found to be adequate. She was prepped and draped in the dorsal supine position with a leftward tilt. A Pfannenstiel skin incision was made using a scalpel and carried down to underlying layer of fascia. The fascia was incised in the midline. The fascial incision was extended laterally using Gonzales scissors. The fascia was tented off the rectus muscles and dissected off the rectus muscle in a cephalad direction using sharp dissection. The rectus muscles were in the midline bluntly. The peritoneum was entered sharply with good visualization of the bladder. The peritoneal incision was extended bluntly with lateral traction. A bladder blade was inserted. Metzenbaum scissors were used to create a bladder flap and dissect the bladder away from the lower uterine segment. The bladder blade was reinserted. A low transverse incision was made on the uterus with a scalpel. The uterine incision was extended using cephalad and caudad traction. Membranes were ruptured for clear fluid using an Allis clamp. The infant's head was flexed and delivered through the hysterotomy followed by the shoulders and body of the without any traction, force, or delay. A vigorous viable male infant was delivered. The cord was clamped and cut after a slight delay and the infant was handed off to the awaiting nursery staff. The placenta was removed with manual extraction. The uterus was exteriorized. The uterus was cleared of all clot and debris. The hysterotomy was closed with 1-0 Vicryl in a running locked fashion. 2 additional [id number] sutures were placed for hemostasis. The uterus was placed back into the abdomen. Ar was placed over the hysterotomy and lower uterine segment. Hemostasis was confirmed. The subfascial space was inspected and the rectus muscles were oozing on the right side. This was made hemostatic with a single [id number] stitch using 3-0 Vicryl and Bovie cautery. Hemostasis was confirmed of the subfascial space. The fascia was closed with STRATAFIX in a running fashion. The subcutaneous space was irrigated and made hemostatic with the Bovie cautery. Subcutaneous space was reapproximated using 3-0 Vicryl. The skin was closed with 4 Monocryl in a subcuticular fashion. A dressing was placed. Instrument, sharp, sponge counts were correct and patient was taken back to the recovery room in stable condition. Surgical Findings: VMI in cephalic presentation. Clear fluid. Normal appearing placenta. Normal appearing uterus and bilateral adnexa. Fascia adhered to rectus muscles. Bladder adhered to mid uterus. Apgars 8, 9. Complications Complications: No Admit VTE Documentation VTE Present on Admission: No VTE Mechan Device Prophylaxis: SCD's
[2025-01-25] MEDS: Famotidine 20 MG Tablet PO (13:53)
[2025-01-25] MEDS: Oxytocin 15 Units/NS 250ml 15 UNITS/250 ML IV.SOLN 83 UNITS IV (13:55)
[2025-01-25] MEDS: Ketorolac 30 MG/ML Syringe IV ×2 (14:08→20:29)
[2025-01-25] MEDS: MESALAMINE 1.2 GM TABLET.DR 2.4 GM PO (20:28)
[2025-01-25] MEDS: 0.9% Saline Lock 10 ML Syringe IV (20:29)
[2025-01-26 01:22] VITALS: BP 133/69; PULSE 67; RESP 16; TEMP 36.6; O2SAT 99
[2025-01-26] MEDS: 0.9% Saline Lock 10 ML Syringe IV ×2 (01:49→08:40)
[2025-01-26] MEDS: Ketorolac 30 MG/ML Syringe IV ×2 (01:49→08:40)
[2025-01-26] MEDS: Acetaminophen 500 MG Tablet 1000 MG PO ×2 (05:08→10:39)
[2025-01-26 06:05] VITALS: BP 133/71; PULSE 69; RESP 16; TEMP 36.6; O2SAT 99
[2025-01-26 06:58] LABS: Hematocrit 30.8 % (37-47); Hemoglobin 10.5 g/dL (12.0-15.0); Mean Corp Hgb Conc 34.1 g/dL (32-36); Mean Corpuscular Volume 85.1 fL (81-99); Mean Platelet Vol. 10.9 fl (6.2-12.0); Platelet Count 167 K/mm3 (150-450); RBC Distribution Width CV 15.3 % (11.6-14.6); Red Blood Count 3.62 M/mm3 (4.2-5.4); White Blood Count 11.7 K/mm3 (4.4-11.0)
[2025-01-26] MEDS: Senna/Docusate Sodium 1 Tablet PO (08:41)
--- NOTE | 2025-01-26 08:43 | PN.OBGYN_ITS ---
Subjective Subjective Denies complaints Objective Data Objective Data Vital Signs: Vital Signs Temp Pulse Resp BP Pulse Ox O2 Del Method 97.8 F 69 16 133/71 H 99 Room Air 01/26/25 06:05 01/26/25 06:05 01/26/25 06:05 01/26/25 06:05 01/26/25 06:05 01/26/25 06:05 Oxygen Delivery Method Room Air Weight: 191 lb Body Mass Index (BMI) 30.8 Intake & Output: Intake and Output for Last 24 Hours 01/24/25 01/25/25 01/26/25 23:59 23:59 23:59 Intake Total 1360 / 1360 Output Total 1350 / 1350 1400 / 1400 Balance -1400 / -1400 Lab / Micro Data 01/26/25 06:20 Labs: Laboratory Results - last 24 hr 01/25/25 10:20: WBC 10.3, RBC 3.76 L, Hgb 10.7 L, Hct 31.8 L, MCV 84.6, MCH 28.5, MCHC 33.6, RDW Std Deviation 47.4 H, RDW Coeff of Bronwyn 15.6 H, Plt Count 167, MPV 10.6, Immature Gran % (Auto) 1.100 H, Neut % (Auto) 72.3 H, Lymph % (Auto) 19.6, Sunflower % (Auto) 5.0, Eos % (Auto) 1.6, Baso % (Auto) 0.4, Absolute Neuts (auto) 7.4, Absolute Lymphs (auto) 2.01, Nucleated RBC % 0, Syphilis Total Ab Nonreactive, Blood Type O POSITIVE, Antibody Screen NEGATIVE 01/26/25 06:20: WBC 11.7 H, RBC 3.62 L, Hgb 10.5 L, Hct 30.8 L, MCV 85.1, MCH 29.0, MCHC 34.1, RDW Std Deviation 48.0 H, RDW Coeff of Bronwyn 15.3 H, Plt Count 167, MPV 10.9 Physical Exam Const alert, oriented x3 and no apparent distress HEENT normocephalic GI soft to palpation, non-tender and non-distended GI Narrative: fundus firm, mid & below umbilicus Incision - bandage c/d/i Extremity normal to inspection and no calf tenderness Assessment & Plan (1) delivery delivered: COMMENT: POD#1 PLAN: Plan Heme - HDS and CBC reviewed. ID - AF and no signs of infection. GI/ - no issues. ROutine care. POssible d/c home later today per patient request.
--- NOTE | 2025-01-26 08:44 | DCINST_ITS ---
Discharge Instructions Diet Discharge Diet: No restrictions DC O2, CPAP, BIPAP needs Home O2 Discharge instructions: No Dressing / Incision Discharge Activity: May Shower May resume sexual activity in: 6 weeks Weight Bearing Status: Weight bearing as tolerated Dressing / Incision Call your doctor if your incision/area has: Continuous Slow Oozing, Sudden Increased Bleeding, Increased Pain/ Swelling, Increased Redness, Foul Smelling Discharge and Swelling at the incision site Call your doctor if you observe: Fever of 101 or Higher, Coldness, Increased Pain, Change in Color, Inability to urinate, Inability to have a bowel movement, Using more than 1 pad per hour, Shortness of breath, Dizziness, Fainting spells, Chest pain, Increased palpitations (irregular heartbeat), Calf discomfort and Uncontrolled pain Suture Line Care: Avoid Pulling/Pushing and Avoid Pinching/Bending Remove Dressing in: 1 week Cleanse incision/area with: Soap & Water Follow Up Care Please Follow Up With: Khadra Khan DO When: Follow up in 1 and 6 weeks for visits. Test Results: Test results from this visit will be discussed in further detail at your follow- up appointment, if applicable. Discharge Plan Admission Admit Date/Time: 01/25/25 09:30 Primary Reason for Your Visit: section Attending Provider: Khadra Khan Primary Care Provider: Anderson Lombardi Discharge Orders/Prescriptions Prescriptions: New acetaminophen 500 mg Tablet 1,000 mg PO Q6H Qty: 0 0RF ibuprofen 600 mg Tablet 600 mg PO Q6H Qty: 0 0RF Continued PNV cmb#95-ferrous fumarate-FA 1 EACH tablet 1 ea PO DAILY valacyclovir [Valtrex] 1 gram Tablet 1,000 mg PO DAILY PRN (Reason: cold sore) mesalamine 1.2 gram tablet,delayed release (DR/EC) 2.4 g PO DAILY Rx Instructions: Takes with food Referrals / Follow Up: Anderson Lombardi MD [Primary Care Provider] - Disposition Disposition (needs filled in before D/C Order can be placed): Home, Self Care
[2025-01-26 08:45] VITALS: BP 130/79; PULSE 64; RESP 16; TEMP 36.7; O2SAT 100
[2025-01-26] MEDS: MEASLES,MUMPS,RUBELLA VACC/PF 0.5 ML SC (10:40)
[2025-01-26 13:00] VITALS: BP 122/86; PULSE 63; RESP 14; TEMP 36.6; O2SAT 98
[2025-01-26] MEDS: Ibuprofen 600 MG Tablet PO (14:32)
[2025-01-26 15:22] VITALS: BP 117/75
== END 2025-01-26 15:55 | disposition home or self-care (01) | DRG 786 ==
PROVIDERS: Admitting Provider Obstetrics & Gynecology; PCP Family Medicine; Referring Provider Obstetrics & Gynecology; Visit Provider Obstetrics & Gynecology
PROC: 10D00Z1 Extraction of Products of Conception, Low, Open Approach (ICD-10-PCS; CPT 59514; principal; 2025-01-25 11:45)
DX: O34.211 Maternal care for low transverse scar from previous cesarean delivery (principal); K83.1 Obstruction of bile duct; K51.90 Ulcerative colitis, unspecified, without complications; O26.62 Liver and biliary tract disorders in childbirth; Z37.0 Single live birth; Z3A.38 38 weeks gestation of pregnancy; O99.62 Diseases of the digestive system complicating childbirth; N96 Recurrent pregnancy loss; O99.893 Other specified diseases and conditions complicating puerperium
CPT/HCPCS: 59025; 59050; 85025; 85027; 86780; 86850; 86900; 86901; A4216